=== PATIENT | female | born 1950 | race Caucasian/White ===

== ENCOUNTER → 2017-09-12 07:57 | Outpatient (CLI) | payer MEDICARE, OTHER, SELFPAY ==
--- NOTE | 2017-09-12 | DI.NM.S_ITS ---
PROCEDURE: NM HIDA WITH CCK PHARMACEUTICAL: 5.5 mCi Tc-99m mebrofenin IV; 1.1 mcg CCK IV. INDICATIONS: RIGHT UPPER QUADRANT PAIN TECHNIQUE: Following intravenous administration of Tc-99m mebrofenin, sequential anterior abdominal images were obtained. To evaluate the contractile response of the gallbladder in response to Cholecystokinin (CCK), sincalide (0.02 ?g/kg) was administered by slow intravenous infusion approximately 60 minutes after the administration of the radiopharmaceutical. Sequential imaging was continued for 30 minutes after the start of CCK infusion. Gallbladder ejection fraction was calculated. COMPARISON: None. FINDINGS: Biliary scan: There is normal tracer uptake and excretion by the liver. There is normal visualization of the intrahepatic ducts, common bile duct, and gallbladder. There is normal tracer transit into the duodenum. CCK stimulation: There is abnormal contractile response of the gallbladder to CCK infusion. The calculated gallbladder ejection fraction is 12%; normal values are above 35%. It has been shown that any patient abdominal pain after CCK administration is related to the rate of CCK injection, rather than to any underlying gallbladder disease (Clinical Nuclear Medicine 2012; 37: 63-70. Journal of Nuclear Medicine 2014; 55: 1-9). IMPRESSION: Abnormal low gallbladder ejection fraction. Finding could be secondary to chronic cholecystitis versus biliary dyskinesia. Dictated by: Sita Jacob MD, PhD on 09/12/2017 at 10:37 Approved by: Sita Jacob MD, PhD on 09/12/2017 at 10:39
== END ==
PROVIDERS: Family Provider Internal Medicine; PCP Internal Medicine; Visit Provider Internal Medicine
DX: R93.2 Abnormal findings on diagnostic imaging of liver and biliary tract (principal); R10.11 Right upper quadrant pain
CPT/HCPCS: 78227; A9537; J2805

== ENCOUNTER → 2017-10-16 10:59 | Outpatient (CLI) | payer MEDICARE, OTHER, SELFPAY ==
[2017-10-16 11:20] LABS: Add Manual Diff / Slide Review NO; Basophils Percent Auto 1.1 % (0-2); Eosinophils Percent Auto 2.7 % (2-4); Hematocrit 35.9 % (36-46); Hemoglobin 12.1 g/dL (12.0-16.0); Lymphocytes Percent Auto 22.3 % (25-40); Mean Corpuscular HGB Conc 33.8 % (30-36); Mean Corpuscular Volume 91.8 fL (80-100); Monocytes Percent Auto 7.8 % (3-14); Neutrophils Absolute Auto 3400 /uL (3000-5900); Neutrophils Percent Auto 66.1 % (50-75); Platelet Count 220 X10^3/uL (150-400); Red Blood Cell Count 3.91 X10^6/uL (4.0-5.2); Red Cell Distribution Width 12.7 % (11.6-14.8); White Blood Cell Count 5.2 X10^3/uL (4.5-11.0)
[2017-10-16 11:34] LABS: Alanine Aminotransferase 25 IU/L (9-52); Albumin 4.4 g/dL (3.5-5.0); Albumin Globulin Ratio 1.1 (1.0-2.8); Alkaline Phosphatase 52 U/L (38-126); Aspartate Aminotransferase 42 IU/L (14-36); BUN Creatinine Ratio 28.6 (6-22); Bilirubin Total 0.4 mg/dL (0.2-1.3); Blood Urea Nitrogen 20 mg/dL (7-17); Calcium 9.5 mg/dL (8.4-10.2); Carbon Dioxide 30 mmol/L (22-32); Chloride 104 mmol/L (98-107); Estimated Glomerular Filt Rate > 60.0 mL/min (>60); Globulin 3.9 g/dL (1.7-4.1); Glucose 90 mg/dL (80-110); HEMOLYSIS < 15 (0-50); Potassium 4.3 mmol/L (3.4-5.1); Sodium 142 mmol/L (137-145); Total Protein 8.3 g/dL (6.3-8.2)
[2017-10-17 15:38] LABS: Free Kappa Light Chain 112.3 mg/L (3.3-19.4); Free Kappa/ Lambda Ratio 17.46 (0.26-1.65); Free Lambda 6.4 mg/L (5.7-26.3)
[2017-10-19 23:13] LABS: Abnormal Protein Band 1 1.5 g/dL (NONE DETECTED); Albumin 4.2 g/dL (3.8-4.8); Alpha 1 Globulin 0.3 g/dL (0.2-0.3); Alpha 2 Globulin 0.7 g/dL (0.5-0.9); Beta 1 Globulin 0.3 g/dL (0.4-0.6); Gamma Globulin 1.7 g/dL (0.8-1.7); Protein, Total 7.4 g/dL (6.1-8.1)
== END ==
PROVIDERS: Family Provider Internal Medicine; PCP Internal Medicine; Visit Provider Nurse Practitioner Gerontology
DX: C90.00 Multiple myeloma not having achieved remission (principal)
CPT/HCPCS: 36415; 80053; 83883; 84155; 84165; 85025

== ENCOUNTER → 2017-11-04 08:31 | Outpatient (CLI) | payer MEDICARE, OTHER, SELFPAY ==
--- NOTE | 2017-11-04 08:34 | DI.RAD.S_ITS ---
PROCEDURE: XR BONE SURVEY INDICATIONS: METASTATIC BONE SURVEY. HX OF SMOLDERING MYELOMA. TECHNIQUE: Multiple views obtained of various bony structures as described below. COMPARISON: Outside Facility, RG, MRI PELVIS W/O CONTRAST, 04/01/2017, 12:40. Outside Facility, RG, MRI L-SPINE W/O CONTRAST, 04/01/2017, 12:14. Outside Facility, RG, MRI BONE MARROW STUDY, 01/07/2012, 12:50. FINDINGS: Skull (lateral): No suspicious bony lesions. No fractures. Thoracic spine (AP, lateral): No suspicious bony lesions. Degenerative disc disease. No acute vertebral body compression fractures. Lumbar spine (AP, lateral): No suspicious bony lesions. Degenerative disc disease. No acute vertebral body compression fractures. Pelvis (AP): No suspicious bony lesions. Spina bifida occulta S1. No fractures. Overlying soft tissues appear unremarkable. Right and left humeri (AP): No suspicious bony lesions. No fractures. Overlying soft tissues appear unremarkable. Right and left femurs (AP): No suspicious bony lesions. No fractures. Degenerative knee joint disease. Overlying soft tissues appear unremarkable. IMPRESSION: Negative bone survey for metastatic disease. Degenerative changes. Dictated by: Jose Stauffer M.D. on 11/04/2017 at 9:33 Approved by: Jose Stauffer M.D. on 11/04/2017 at 9:41
--- NOTE | 2017-11-04 08:34 | DI.NM.S_ITS ---
PROCEDURE: NM BONE SCAN WHOLE BODY RADIOPHARMACEUTICAL: 20.4 mCi Tc-99m MDP IV. INDICATIONS: The patient is a 67-year-old woman with multiple myelomas TECHNIQUE: Delayed whole-body scintigrams were obtained approximately 3-4 hours after intravenous injection of radiotracer. COMPARISON: Outside Facility, RG, MRI L-SPINE W/O CONTRAST, 04/01/2017, 12:14. [facility], CR, XR BONE SURVEY, 11/04/2017, 8:51. FINDINGS: There is mild increased activity at the sternal manubrial junction, most likely degenerative in nature. No lesions are identified in skull, sternum, clavicles, scapulae, ribs, bony pelvis, and visualized shafts of the long bones. There is increased uptake in cervical, thoracic and lumbar spine with distribution indistinguishable from degenerative disc and facet disease; early metastasis to spine could be obscured by degenerative changes. There are foci of increased periarticular activity involving shoulders bilaterally, sternoclavicular joints bilaterally, left elbow, wrists bilaterally, hips and knees bilaterally, and feet bilaterally, compatible with degenerative/arthritic changes. There is normal soft tissue uptake. IMPRESSION: 1. No definitive scintigraphic findings for multiple myelomas, but bone scan is known to underestimated lytic bone lesions such as multiple myelomas. Dictated by: Jimenez Child M.D. on 11/04/2017 at 16:56 Approved by: Jimenez Child M.D. on 11/05/2017 at 11:43
== END ==
PROVIDERS: Family Provider Internal Medicine; PCP Internal Medicine; Visit Provider Internal Medicine Hematology & Oncology
DX: C90.00 Multiple myeloma not having achieved remission (principal)
CPT/HCPCS: 77075; 78306; A9503

== ENCOUNTER 2018-03-08 20:02 | Emergency (ER) | payer MEDICARE, OTHER, SELFPAY ==
[2018-03-08 20:11] VITALS: BP 115/78; PULSE 87; RESP 16; TEMP 36.1; O2SAT 98; BMI 22.6
--- NOTE | 2018-03-08 20:18 | ED.ABDPAIN ---
HPI - Abdominal Pain General Chief Complaint: Abdominal Pain Stated Complaint: FLARE UP DIVERTICULITIS Time Seen by Provider: 03/08/18 20:18 Source: patient Mode of arrival: ambulatory Limitations: no limitations History of Present Illness HPI narrative: patient is a juliette 67-year-old female who presents with left lower quadrant pain. It has been ongoing for the last 2 days progressively getting worse. She has a history of diverticulitis she has this feels similar. She has not had any bloody stool she has had 1 episode of diarrhea. She has not had fever or chills. MD complaint: abdominal pain (Left lower quadrant) Onset (ago): day(s) (2) Pain Consistency: constant Location: LLQ Severity: moderate Quality: sharp Radiation: none Migration to: no migration Exacerbating factors: nothing Associated symptoms: denies other symptoms Related Data Home Medications Medication Instructions Recorded Confirmed esomeprazole magnesium [Nexium] 40 mg PO PRN #0 06/03/12 02/17/18 calcium citrate-vitamin D3 1 tab PO QDAY #0 08/14/16 02/17/18 [Citracal + D Petites] omega 7-fyq-rcy-fish oil [Fish Oil] 1,000 mg PO QDAY #0 08/14/16 02/17/18 gabapentin 300 mg PO DAILY 11/12/17 02/17/18 Previous Rx's Medication Instructions Recorded lorazepam 0.5 mg PO Q6-8H PRN #45 tab 12/26/17 metronidazole 500 mg PO TID #21 tab 03/08/18 sulfamethoxazole-trimethoprim 1 tab PO Q12H #14 tab 03/08/18 Allergies Allergy/AdvReac Type Severity Reaction Status Date / Time levofloxacin Allergy Severe TENDON PAIN Verified 02/06/18 14:52 Penicillins Allergy Unknown UNKNOWN Verified 02/06/18 14:52 Review of Systems Review of Systems GENERAL: Denies chills, fatigue, malaise, fever, sweats, travel HEENT: Denies sinus pain, ear pain, sore throat, difficulty swallowing, neck pain RESPIRATORY: Denies dyspnea, cough, wheezing, hemoptysis, sputum. CARDIOVASCULAR: Denies chest pain, palpitations, orthopnea, edema GASTROINTESTINAL: See HPI : Denies dysuria, frequency, incontinence, hematuria, urinary retention, flank pain. MUSCULOSKELETAL: Denies weakness, joint pain, or bony pain SKIN: No rash, no erythema, no pruritus NEUROLOGIC: Denies weakness, dizziness, headache, numbness, change in speech, confusion PSYCHIATRIC: No concerning psychosocial issues. 12 point review of systems is negative except for those stated above and HPI [facility] Medical History Diverticulitis (Acute) Hemorrhoids (Acute) Hypercalcemia (Acute) Osteopenia (Acute) Surgical History H/O tubal ligation (Acute) History of appendectomy (Acute) History of parathyroidectomy (Acute) Hx of tonsillectomy (Acute) Previous section (Acute) Social History marital status: household members: spouse housing: house Smoking Status: Never smoker alcohol intake: current Exam Initial Vital Signs Initial Vital Signs: Vital Signs Temperature 97.0 F L 03/08/18 20:11 Pulse Rate 87 03/08/18 20:11 Respiratory Rate 16 03/08/18 20:11 Blood Pressure 115/78 03/08/18 20:11 Pulse Oximetry 98 03/08/18 20:11 GENERAL: Well-appearing, well-nourished and in no acute distress. HEENT: Head atraumatic,EOMI, pupils reactive, face symmetric, CARDIOVASCULAR: Regular rate and rhythm without murmurs, rubs or gallops. RESPIRATORY: Breath sounds equal bilaterally, no wheezes rales or rhonchi. ABDOMEN: Soft, left lower quadrant pain without guarding or rebound no flank pain EXTREMITIES: Normal range of motion, no clubbing or edema. Neurovascularly intact NEUROLOGICAL: Alert and oriented x4.Normal gait and speech. Cranial nerves II through XII grossly intact. SKIN: Warm, dry, no laceration, no petechiae, no rashes or lesions. Course Orders Ordered: ED Orders 03/08/18 20:27 CT abdomen pelvis w con Stat 03/08/18 20:44 Complete Blood Count AUTO DIFF Stat Comprehensive Metabolic Panel Stat Lipase Stat Discontinued Medications Acetaminophen (Tylenol) 650 mg PO NOW ONE Stop: 03/08/18 20:28 Last Admin: 03/08/18 20:33 Dose: 650 mg Metronidazole (Metronidazole) 500 mg PO NOW ONE Stop: 03/08/18 22:04 Last Admin: 03/08/18 22:18 Dose: Trimethoprim/Sulfamethoxazole (Bactrim Ds Prepack) 1 bottle MISC SEEINSTR ONE Stop: 03/08/18 22:04 Last Admin: 03/08/18 22:18 Dose: Vital Signs - 8 hr 03/08/18 20:11 03/08/18 22:25 Temperature 97.0 F L Pulse Rate 87 78 Respiratory Rate 16 16 Blood Pressure 115/78 105/58 L Pulse Oximetry 98 100 MDM - Abdominal Pain Lab Data Attestation: I reviewed the patient's lab results. Result diagrams: 03/08/18 20:44 03/08/18 20:44 Lab Results 03/08/18 03/08/18 Range/Units 20:44 20:44 WBC 7.8 (4.5-11.0) X10^3/uL RBC 3.77 L (4.0-5.2) X10^6/uL Hgb 11.8 L (12.0-16.0) g/dL Hct 34.5 L (36-46) % MCV 91.6 (80-100) fL MCH 31.4 (26-34) PG MCHC 34.3 (30-36) % RDW 12.6 (11.6-14.8) % Plt Count 209 (150-400) X10^3/uL Neut % (Auto) 65.6 (50-75) % Lymph % (Auto) 22.7 L (25-40) % Wheeler % (Auto) 8.5 (3-14) % Eos % (Auto) 2.3 (2-4) % Baso % (Auto) 0.9 (0-2) % Neut # (Auto) 5100 (1330-4117) /uL Sodium 142 (137-145) mmol/L Potassium 3.5 (3.4-5.1) mmol/L Chloride 102 (98-107) mmol/L Carbon Dioxide 32 (22-32) mmol/L BUN 13 (7-17) mg/dL Creatinine 0.70 (0.52-1.04) mg/dL Estimated GFR > 60.0 (>60) mL/min BUN/Creatinine Ratio 18.6 (6-22) Glucose 108 (80-110) mg/dL Calcium 9.7 (8.4-10.2) mg/dL Total Bilirubin 0.2 (0.2-1.3) mg/dL AST 35 (14-36) IU/L ALT 29 (9-52) IU/L Alkaline Phosphatase 66 (38-126) U/L Total Protein 8.2 (6.3-8.2) g/dL Albumin 4.3 (3.5-5.0) g/dL Globulin 3.9 (1.7-4.1) g/dL Albumin/Globulin Ratio 1.1 (1.0-2.8) Lipase 124 (23-300) U/L Point of care testing: Urine Dip Bedside Urine Bilirubin - Negative Bedside Urine Ketone - Negative Urine Specific Lindstrom 1.030 Bedside Urine Occult Blood - Negative Bedside Urine pH 6.0 Bedside Urine Protein - Negative Bedside Urine Urobilinogen - Negative Bedside Urine Nitrite - Negative Bedside Urine Leukocytes - Negative Esterase Imaging Data CT scan - abdomen: Radiologist's impression: PROCEDURE: CT ABDOMEN PELVIS W CON INDICATIONS: LLQ pain TECHNIQUE: After the administration of intravenous contrast, 5 mm thick sections acquired from the diaphragm to the symphysis. 5 mm coronal and sagittal reformats were acquired. For radiation dose reduction, the following was used: automated exposure control, adjustment of mA and/or kV according to patient size. COMPARISON: [facility], , [place] ABDOMEN COMPLETE, 09/04/2017, 7:25. FINDINGS: Image quality: Excellent. ABDOMEN: Lung bases: Lung bases are clear. Heart size is normal. Solid organs: Liver is enlarged with mild steatosis. Gallbladder is unremarkable. Biliary system is non dilated. Pancreas enhances normally. Spleen is normal in size and enhancement. No adrenal nodules. Kidneys demonstrate normal size and enhancement, without hydronephrosis. Peritoneum and bowel: Bowel loops are nonobstructive. No free fluid or air. Significant colonic stool is present. There are colonic diverticula identified. There is a focal loop of thickened distal descending colon with diverticula and pericolonic stranding. Sigmoid colon is collapsed limiting evaluation. Minimal dependent pelvic fluid is present. No abscess. Nodes and vessels: No retroperitoneal or mesenteric adenopathy by size criteria. Aorta and inferior vena cava are normal in size. Miscellaneous: No ventral hernias. PELVIS: Genitourinary: Bladder wall thickness is normal. Miscellaneous: No inguinal hernias or adenopathy. Bones: No suspicious bony lesions. No vertebral body compression fractures. IMPRESSION: 1. Focal thickened loop of distal descending colon with diverticula and pericolonic inflammatory change no suggestion of diverticulitis. No abscess formation is present. Sigmoid colon is suboptimally evaluated as it is poorly distended. Dictated by: Nadine Cristobal M.D. on 03/08/2018 at 21:39 MDM Narrative Medical decision making narrative: Patient does not have definitive diverticulitis on CT but she does have some inflammatory changes. Mild leukocytosis in afebrile. She has significant allergies to penicillin and fluoroquinolones. I discussed conservative treatment of no antibiotics and waiting for the next couple of days versus starting antibiotics now. At this time she is agreeable to wait a few days however have prescribed her Bactrim and Flagyl if she continues to have pain. Discharge Plan Departure Patient Disposition: Home Clinical Impression: Colitis Discharge Date/Time: 03/08/18 22:26 Interventions: ED Discharge Assessment Last Done: 03/08/18 22:25 Instructions: Diverticulitis, DI for Colitis Activity Restrictions/Additional Instructions: *You have been diagnosed with colitis *What to do: CT showed inflammation no specific diverticulitis blood work reassuring weight 2-3 days symptoms may resolve without antibiotics. If symptoms continue or worsen may start antibiotics as prescribed *Continue to take medications as directed: faxed to [facility] in [place] Flagyl 1 tablet 3 times a day for 7 days Bactrim 1 tablet twice a day for 7 days *Follow up with your primary care provider in 2-3 days *Return to ER if you should have fever, worsening pain, bloody diarrhea any new, worsening or concerning symptoms Prescriptions: New sulfamethoxazole-trimethoprim 800-160 mg tablet 1 tab PO Q12H Qty: 14 RF: 0 metronidazole 500 mg tablet 500 mg PO TID Qty: 21 RF: 0 No Action esomeprazole magnesium [Nexium] 40 MG capsule,delayed release(DR/EC) 40 mg PO PRN Qty: 0 RF: 0 omega 6-wxp-afy-fish oil [Fish Oil] 1,000 MG capsule 1,000 mg PO QDAY Qty: 0 RF: 0 calcium citrate-vitamin D3 [Citracal + D Petites] 950 MG/250 IU tablet 1 tab PO QDAY Qty: 0 RF: 0 gabapentin 300 mg Capsule 300 mg PO DAILY RF: 0 lorazepam 0.5 mg Tablet 0.5 mg PO Q6-8H PRN (Reason: Anxiety) Qty: 45 RF: 0
--- NOTE | 2018-03-08 20:27 | DI.CT.S_ITS ---
PROCEDURE: CT ABDOMEN PELVIS W CON INDICATIONS: LLQ pain TECHNIQUE: After the administration of intravenous contrast, 5 mm thick sections acquired from the diaphragm to the symphysis. 5 mm coronal and sagittal reformats were acquired. For radiation dose reduction, the following was used: automated exposure control, adjustment of mA and/or kV according to patient size. COMPARISON: , , US ABDOMEN COMPLETE, 09/04/2017, 7:25. FINDINGS: Image quality: Excellent. ABDOMEN: Lung bases: Lung bases are clear. Heart size is normal. Solid organs: Liver is enlarged with mild steatosis. Gallbladder is unremarkable. Biliary system is non dilated. Pancreas enhances normally. Spleen is normal in size and enhancement. No adrenal nodules. Kidneys demonstrate normal size and enhancement, without hydronephrosis. Peritoneum and bowel: Bowel loops are nonobstructive. No free fluid or air. Significant colonic stool is present. There are colonic diverticula identified. There is a focal loop of thickened distal descending colon with diverticula and pericolonic stranding. Sigmoid colon is collapsed limiting evaluation. Minimal dependent pelvic fluid is present. No abscess. Nodes and vessels: No retroperitoneal or mesenteric adenopathy by size criteria. Aorta and inferior vena cava are normal in size. Miscellaneous: No ventral hernias. PELVIS: Genitourinary: Bladder wall thickness is normal. Miscellaneous: No inguinal hernias or adenopathy. Bones: No suspicious bony lesions. No vertebral body compression fractures. IMPRESSION: 1. Focal thickened loop of distal descending colon with diverticula and pericolonic inflammatory change no suggestion of diverticulitis. No abscess formation is present. Sigmoid colon is suboptimally evaluated as it is poorly distended. Dictated by: Nadine Cristobal M.D. on 03/08/2018 at 21:39 Approved by: Nadine Cristobal M.D. on 03/08/2018 at 21:41
[2018-03-08] MEDS: ACETAMINOPHEN 325 MG TABLET 650 MG PO (20:33)
[2018-03-08 20:47] LABS: Add Manual Diff / Slide Review NO; Basophils Percent Auto 0.9 % (0-2); Eosinophils Percent Auto 2.3 % (2-4); Hematocrit 34.5 % (36-46); Hemoglobin 11.8 g/dL (12.0-16.0); Lymphocytes Percent Auto 22.7 % (25-40); Mean Corpuscular HGB Conc 34.3 % (30-36); Mean Corpuscular Hemoglobin 31.4 PG (26-34); Mean Corpuscular Volume 91.6 fL (80-100); Monocytes Percent Auto 8.5 % (3-14); Neutrophils Absolute Auto 5100 /uL (3000-5900); Neutrophils Percent Auto 65.6 % (50-75); Platelet Count 209 X10^3/uL (150-400); Red Blood Cell Count 3.77 X10^6/uL (4.0-5.2); Red Cell Distribution Width 12.6 % (11.6-14.8); White Blood Cell Count 7.8 X10^3/uL (4.5-11.0)
[2018-03-08 20:59] LABS: Alanine Aminotransferase 29 IU/L (9-52); Albumin 4.3 g/dL (3.5-5.0); Albumin Globulin Ratio 1.1 (1.0-2.8); Alkaline Phosphatase 66 U/L (38-126); Aspartate Aminotransferase 35 IU/L (14-36); BUN Creatinine Ratio 18.6 (6-22); Bilirubin Total 0.2 mg/dL (0.2-1.3); Blood Urea Nitrogen 13 mg/dL (7-17); Calcium 9.7 mg/dL (8.4-10.2); Carbon Dioxide 32 mmol/L (22-32); Chloride 102 mmol/L (98-107); Estimated Glomerular Filt Rate > 60.0 mL/min (>60); Globulin 3.9 g/dL (1.7-4.1); Glucose 108 mg/dL (80-110); HEMOLYSIS < 15 (0-50); Lipase 124 U/L (23-300); Potassium 3.5 mmol/L (3.4-5.1); Sodium 142 mmol/L (137-145); Total Protein 8.2 g/dL (6.3-8.2)
[2018-03-08 22:25] VITALS: BP 105/58; PULSE 78; RESP 16; O2SAT 100
== END 2018-03-08 22:26 | disposition home or self-care (01) ==
PROVIDERS: Emergency Provider Emergency Medicine
DX: K52.9 Noninfective gastroenteritis and colitis, unspecified (principal)
CPT/HCPCS: 36591; 74177; 80053; 81003; 83690; 85025; 99282; 99285; Q9967

== ENCOUNTER → 2018-03-17 14:48 | Outpatient (CLI) | payer MEDICARE, OTHER, SELFPAY ==
[2018-03-17 15:21] LABS: Add Manual Diff / Slide Review NO; Basophils Percent Auto 0.9 % (0-2); Eosinophils Percent Auto 2.6 % (2-4); Hematocrit 36.1 % (36-46); Hemoglobin 12.1 g/dL (12.0-16.0); Lymphocytes Percent Auto 29.2 % (25-40); Mean Corpuscular HGB Conc 33.7 % (30-36); Mean Corpuscular Hemoglobin 30.8 PG (26-34); Mean Corpuscular Volume 91.4 fL (80-100); Monocytes Percent Auto 7.5 % (3-14); Neutrophils Absolute Auto 3300 /uL (3000-5900); Neutrophils Percent Auto 59.8 % (50-75); Platelet Count 290 X10^3/uL (150-400); Red Blood Cell Count 3.94 X10^6/uL (4.0-5.2); Red Cell Distribution Width 12.4 % (11.6-14.8); White Blood Cell Count 5.6 X10^3/uL (4.5-11.0)
[2018-03-17 16:23] LABS: Alanine Aminotransferase 25 IU/L (9-52); Albumin 4.6 g/dL (3.5-5.0); Albumin Globulin Ratio 1.1 (1.0-2.8); Alkaline Phosphatase 82 U/L (38-126); Aspartate Aminotransferase 32 IU/L (14-36); BUN Creatinine Ratio 18.6 (6-22); Bilirubin Total 0.3 mg/dL (0.2-1.3); Blood Urea Nitrogen 13 mg/dL (7-17); Calcium 9.4 mg/dL (8.4-10.2); Carbon Dioxide 30 mmol/L (22-32); Chloride 102 mmol/L (98-107); Estimated Glomerular Filt Rate > 60.0 mL/min (>60); Globulin 4.2 g/dL (1.7-4.1); Glucose 114 mg/dL (80-110); HEMOLYSIS < 15 (0-50); Potassium 3.5 mmol/L (3.4-5.1); Sodium 139 mmol/L (137-145); Total Protein 8.8 g/dL (6.3-8.2)
[2018-03-19 13:41] LABS: Immunoglobulin A 15 mg/dL (81-463); Immunoglobulin G, Quantitative 2002 mg/dL (694-1618); Immunoglobulin M, Quantitative 8 mg/dL (48-271)
[2018-03-19 15:54] LABS: Free Kappa Light Chain 114.8 mg/L (3.3-19.4); Free Kappa/ Lambda Ratio 19.19 (0.26-1.65)
[2018-03-21 10:56] LABS: Abnormal Protein Band 1 1.5 g/dL (NONE DETECTED); Albumin 4.3 g/dL (3.8-4.8); Alpha 1 Globulin 0.3 g/dL (0.2-0.3); Alpha 2 Globulin 0.7 g/dL (0.5-0.9); Beta 1 Globulin 0.3 g/dL (0.4-0.6); Gamma Globulin 1.8 g/dL (0.8-1.7); Protein, Total 7.7 g/dL (6.1-8.1)
== END ==
PROVIDERS: Family Provider Internal Medicine; PCP Internal Medicine; Visit Provider Internal Medicine
DX: C90.00 Multiple myeloma not having achieved remission (principal)
CPT/HCPCS: 36415; 80053; 82784; 83883; 84155; 84165; 85025

== ENCOUNTER → 2018-05-01 14:55 | Outpatient (CLI) | payer MEDICARE, OTHER, SELFPAY | PROVIDERS: Family Provider Internal Medicine; PCP Internal Medicine; Referring Provider Internal Medicine; Visit Provider Internal Medicine Hematology & Oncology | DX: M85.852 Other specified disorders of bone density and structure, left thigh (principal); Z78.0 Asymptomatic menopausal state; C90.00 Multiple myeloma not having achieved remission; Z82.62 Family history of osteoporosis; Z87.891 Personal history of nicotine dependence | CPT/HCPCS: 77080 ==

== ENCOUNTER 2018-05-21 09:47 | Day surgery (SDC) | payer MEDICARE, OTHER, SELFPAY ==
[2018-05-21 09:53] VITALS: BP 109/73; PULSE 94; RESP 16; TEMP 36.3; O2SAT 99; BMI 22.6
[2018-05-21] MEDS: ONDANSETRON 4 MG/2 ML INJ IV (10:05)
[2018-05-21] MEDS: LACTATED RINGERS 1,000 ML 42 ML IV (10:08)
[2018-05-21 11:08] VITALS: BP 99/65; PULSE 91; RESP 13; TEMP 36.7; O2SAT 97
--- NOTE | 2018-05-21 11:09 | PM.HP.1 ---
History of Present Illness Date Patient Seen: 05/21/18 Time Patient Seen: 11:09 Chief complaint: colonoscopy hemrroid banding [id number] Narrative: Ashley is a pleasant 68-year-old lady who is well known to me from prior visits. She presents today to undergo a colonoscopy and hemorrhoid banding. Her last colonoscopy was at least 10 or 11 years ago. She has known internal hemorrhoids and we discussed banding before in the past. She also suffers from a smoldering case of multiple myeloma and she has just seen doctor José Miguel and reports that she is doing well. Patient History Medical History Diverticulitis (Acute) Hemorrhoids (Acute) Hypercalcemia (Acute) Osteopenia (Acute) Surgical History H/O tubal ligation (Acute) History of appendectomy (Acute) History of parathyroidectomy (Acute) Hx of tonsillectomy (Acute) Previous section (Acute) Family & Social History Family History: Reviewed 05/21/18 by Yajaira Louis MD Social History: household members spouse Tobacco & Substance use: Smoking Status Never smoker alcohol intake current alcohol intake frequency a few times a week Substance Use Type does not use Meds Home Medications Medication Instructions Recorded Confirmed Type esomeprazole magnesium [Nexium] 40 mg PO PRN #0 06/03/12 05/05/18 History calcium citrate-vitamin D3 1 tab PO QDAY #0 08/14/16 05/05/18 History [Citracal + D Petites] omega 6-crr-gsr-fish oil [Fish Oil] 1,000 mg PO QDAY #0 08/14/16 05/05/18 History gabapentin 300 mg PO DAILY 11/12/17 05/05/18 History lorazepam 0.5 mg PO Q6-8H PRN #45 tab 12/26/17 05/05/18 Rx metronidazole 500 mg PO TID PRN 05/05/18 05/05/18 History sulfamethoxazole-trimethoprim 1 tab PO Q12H PRN 05/05/18 05/05/18 History Allergies Allergy/AdvReac Type Severity Reaction Status Date / Time levofloxacin Allergy Severe TENDON PAIN Verified 04/14/18 10:04 Penicillins Allergy Unknown UNKNOWN Verified 04/14/18 10:04 codeine AdvReac Mild Nausea Verified 04/14/18 10:04 Review of Systems Review of Systems All systems reviewed & are unremarkable except as noted in HPI and below Exam Vital Signs (past 8 hours): - 05/21/18 09:53 Temperature 97.4 F L Pulse Rate 94 H Respiratory Rate 16 Blood Pressure 109/73 Pulse Oximetry 99 Oxygen Delivery Method Room Air Narrative Exam Narrative: Very pleasant thin lady in no obvious distress HEENT: Normocephalic and atraumatic, pupils equal round reactive to light accommodation with anicteric sclera Lungs: Clear bilaterally Heart: Regular rate and rhythm Abdomen: Soft, nontender, active bowel sounds Rectal examination: 2 areas of prolapsing internal hemorrhoids at 5:00 a.m. and 9:00 a.m. respectively. No enlarged external hemorrhoids are appreciated. She has 1 residual skin tag at 6:00 a.m.. No erythema or surrounding reaction. Extremities: Warm and well perfused Assessment & Plan Plan: Assessment/Plan Narrative: Pleasant 68-year-old lady here for colonoscopy and hemorrhoid banding. We discussed the risks and benefits of the procedure once again the patient expressed a desire to complete it today.
[2018-05-21 11:12] VITALS: BP 104/65; PULSE 80; RESP 9; O2SAT 93
--- NOTE | 2018-05-21 11:17 | P.OP_ITS ---
Operative Date/Time/Diagnoses Date of procedure: 05/21/18 Time of procedure: 11:13 Pre-op diagnosis: Screening Grade 2-3 internal hemorrhoids Post-op diagnosis: same Procedure & Clinicians Procedure: Colonoscopy and hemorrhoid banding x3 Same procedure as scheduled: Yes Indications: Last colonoscopy more than 10 years ago Surgeon: Yajaira Louis Click Yes if Unassisted: Yes Anesthesia Type: General Operative Notes Findings: 1. Excellent prep 2. No polyps or mass lesions 3. No AV malformations 4. Short segment diverticulosis between 20 and 30 cm from the anal verge. She has scattered large deep pockets in this region only with sparing of the remainder of the colon. No evidence of inflammation 5. Grade 2-3 internal hemorrhoids with bands placed at 5:00 a.m. and 8 and 9: 00 a.m. respectively Closure Type: not applicable Implants & Drains: Three sets of hemorrhoid bands Procedure in detail: After obtaining informed consent, the patient was brought to the GI suite and placed in the left lateral decubitus position on the examination table. After placement of appropriate monitors, a time out was held per SCOAP protocol. Following this, the patient received successful induction of general anesthesia A digital rectal examination was performed and did not reveal any masses or obstructing lesions. The colonoscope was gently passed into the patient's anus and the entire colon navigated to the level of the cecum with minimal difficulty. Once in the cecum, the scope was withdrawn being sure to go before and beyond all mucosal folds and prominences and get an excellent examination. The findings are noted above. At the level of the rectal vault, the scope was retroflexed and the internal anal canal was examined. The scope was straightened and air aspirated from the colon. The instrument was removed from the patient's body and the procedure was concluded. We continued with hemorrhoid banding. The anal retractor was lubricated and placed in the patient's anal canal. An Allis clamp was placed on the hemorrhoid complex at 5:00 a.m. and 2 bands deployed at the base of this complex. There was a notable difference in the appearance of the anal canal externally. The same procedure was repeated at 8 and 9:00 a.m. respectively. This hemorrhoid complex was divided into 2 segments because of its large size. Again, there was noticeable improvement in the external appearance of these hemorrhoids. The retractor was removed and the procedure was concluded. The patient was allowed to awaken from sedation without difficulty and taken to the post-anesthesia care unit in good condition. Complications: none Condition: stable Disposition: PACU Plan for aftercare: 1. Discharge to home 2. Plan for next colonoscopy in 10 years or as clinically indicated and 3. Follow up with my clinic in 2 weeks
[2018-05-21 11:18] VITALS: BP 115/75; PULSE 81; RESP 16; O2SAT 95
--- NOTE | 2018-05-21 11:32 | SUR.PHASEII ---
Pt c/o rectal pressure, requested to get up to the bathroom. Pt ambulated to the bathroom, sba. Denied passing flatus or bm.
[2018-05-21 11:36] VITALS: BP 113/71; PULSE 77; RESP 15; TEMP 36.3; O2SAT 97
== END 2018-05-21 11:58 | disposition home or self-care (01) ==
PROVIDERS: Family Provider Internal Medicine; PCP Internal Medicine; Visit Provider Surgery
PROC: 0DJD8ZZ Inspection of Lower Intestinal Tract, Via Natural or Artificial Opening Endoscopic (ICD-10-PCS; CPT 45378; principal; 2018-05-21 11:15)
DX: Z12.11 Encounter for screening for malignant neoplasm of colon (principal); K57.30 Diverticulosis of large intestine without perforation or abscess without bleeding; K64.2 Third degree hemorrhoids
CPT/HCPCS: 46221; G0121; J2405; J2704; J3010

== ENCOUNTER → 2018-09-11 13:44 | Outpatient (CLI) | payer MEDICARE, OTHER, SELFPAY ==
[2018-09-11 14:23] LABS: Add Manual Diff / Slide Review NO; Basophils Absolute Auto 0 /uL (0-100); Basophils Percent Auto 0.6 % (0-2); Eosinophils Absolute Auto 100 /uL (0-450); Eosinophils Percent Auto 1.5 % (2-4); Hematocrit 34.9 % (36-46); Hemoglobin 11.9 g/dL (12.0-16.0); Lymphocytes Absolute Auto 1400 /uL (1100-4500); Lymphocytes Percent Auto 23.7 % (25-40); Mean Corpuscular HGB Conc 34.2 % (30-36); Mean Corpuscular Hemoglobin 31.5 PG (26-34); Mean Corpuscular Volume 92.1 fL (80-100); Monocytes Absolute Auto 400 /uL (0-900); Monocytes Percent Auto 6.6 % (3-14); Neutrophils Absolute Auto 3900 /uL (1500-7000); Neutrophils Percent Auto 67.6 % (50-75); Platelet Count 240 X10^3/uL (150-400); Red Blood Cell Count 3.79 X10^6/uL (4.0-5.2); Red Cell Distribution Width 13.5 % (11.6-14.8); White Blood Cell Count 5.7 X10^3/uL (4.5-11.0)
[2018-09-11 14:55] LABS: Alanine Aminotransferase 39 IU/L (9-52); Albumin 4.6 g/dL (3.5-5.0); Albumin Globulin Ratio 1.1 (1.0-2.8); Alkaline Phosphatase 73 U/L (38-126); Aspartate Aminotransferase 43 IU/L (14-36); BUN Creatinine Ratio 22.5 (6-22); Bilirubin Total 0.4 mg/dL (0.2-1.3); Blood Urea Nitrogen 18 mg/dL (7-17); Calcium 9.6 mg/dL (8.4-10.2); Carbon Dioxide 29 mmol/L (22-32); Chloride 101 mmol/L (98-107); Estimated Glomerular Filt Rate > 60.0 mL/min (>60); Globulin 4.1 g/dL (1.7-4.1); Glucose 106 mg/dL (80-110); HEMOLYSIS < 15 (0-50); Potassium 3.7 mmol/L (3.4-5.1); Sodium 138 mmol/L (137-145); Total Protein 8.7 g/dL (6.3-8.2)
[2018-09-13 10:56] LABS: Free Kappa Light Chain 133.2 mg/L (3.3-19.4); Free Kappa/ Lambda Ratio 17.36 (0.26-1.65); Free Lambda 7.7 mg/L (5.7-26.3)
[2018-09-13 14:12] LABS: Immunoglobulin A 17 mg/dL (81-463); Immunoglobulin G, Quantitative 2048 mg/dL (694-1618); Immunoglobulin M, Quantitative 7 mg/dL (48-271)
[2018-09-15 16:46] LABS: Abnormal Protein Band 1 1.5 g/dL (NONE DETECTED); Albumin 4.3 g/dL (3.8-4.8); Alpha 1 Globulin 0.3 g/dL (0.2-0.3); Alpha 2 Globulin 0.7 g/dL (0.5-0.9); Beta 1 Globulin 0.4 g/dL (0.4-0.6); Gamma Globulin 1.7 g/dL (0.8-1.7); Protein, Total 7.6 g/dL (6.1-8.1)
== END ==
PROVIDERS: PCP Internal Medicine; Visit Provider Internal Medicine
DX: C90.00 Multiple myeloma not having achieved remission (principal)
CPT/HCPCS: 36415; 80053; 82784; 83883; 84155; 84165; 85025

== ENCOUNTER → 2018-10-04 08:52 | Outpatient (CLI) | payer MEDICARE, OTHER, SELFPAY ==
--- NOTE | 2018-10-04 | DI.MG.S_ITS ---
BILATERAL DIGITAL SCREENING MAMMOGRAM 3D/2D WITH CAD: 10/04/2018 CLINICAL: Routine screening. Family history of breast cancer. Comparison is made to exams dated: 09/03/2017 mammogram, 05/15/2016 mammogram, and 04/28/2015 mammogram - [facility]. The tissue of both breasts is heterogeneously dense. This may lower the sensitivity of mammography. Current study was also evaluated with a Computer Aided Detection (CAD) system. No significant masses, calcifications, or other findings are seen in either breast. There has been no significant interval change. IMPRESSION: NEGATIVE There is no mammographic evidence of malignancy. A 1 year screening mammogram is recommended. This exam was interpreted at Station ID: [id number]. NOTE: For mammograms, a report in lay terms will be sent to the patient. Approximately 15% of breast malignancies will not be visualized mammographically. In the management of a palpable breast mass, a negative mammogram must not discourage biopsy of a clinically suspicious lesion. Electronically Signed By: Sergio avila/ashwin:10/06/2018 11:37:12 copy to: ALKA JUAREZ letter sent: Normal Exam ACR BI-RADS Category 1: Negative [id number]
== END ==
PROVIDERS: PCP Internal Medicine; Visit Provider Internal Medicine
DX: Z12.31 Encounter for screening mammogram for malignant neoplasm of breast (principal); Z80.3 Family history of malignant neoplasm of breast
CPT/HCPCS: 77063; 77067

== ENCOUNTER → 2018-10-07 14:58 | Outpatient (CLI) | payer MEDICARE, OTHER, SELFPAY ==
--- NOTE | 2018-10-07 | DI.RAD.S_ITS ---
PROCEDURE: XR BONE SURVEY INDICATIONS: BONE SURVEY TECHNIQUE: Multiple views obtained of various bony structures as described below. COMPARISON: [facility], , XR BONE SURVEY, 11/04/2017, 8:51. FINDINGS: Skull (lateral): No suspicious bony lesions. No fractures. Thoracic spine (AP, lateral): No suspicious bony lesions. No acute vertebral body compression fractures. Lumbar spine (AP, lateral): No suspicious bony lesions. No acute vertebral body compression fractures. Moderate degenerative disc and facet disease lumbar spine. Pelvis (AP): No suspicious bony lesions. No fractures. Overlying soft tissues appear unremarkable. Right and left humeri (AP): No suspicious bony lesions. No fractures. Overlying soft tissues appear unremarkable. Right and left femurs (AP): No suspicious bony lesions. No fractures. Overlying soft tissues appear unremarkable. IMPRESSION: 1. No bony lesions identified to suggest multiple myelomas. 2. Moderate degenerative disc and facet disease in lumbar spine. Dictated by: Jimenez Child M.D. on 10/07/2018 at 16:56 Approved by: Jimenez Child M.D. on 10/07/2018 at 16:58
== END ==
PROVIDERS: PCP Internal Medicine; Visit Provider Internal Medicine
DX: Z13.828 Encounter for screening for other musculoskeletal disorder (principal); M51.36 Other intervertebral disc degeneration, lumbar region; C90.00 Multiple myeloma not having achieved remission
CPT/HCPCS: 77075

== ENCOUNTER → 2018-10-10 15:29 | Outpatient (CLI) | payer MEDICARE, OTHER, SELFPAY ==
[2018-10-10 16:15] LABS: Add Manual Diff / Slide Review NO; Basophils Absolute Auto 0 /uL (0-100); Basophils Percent Auto 0.7 % (0-2); Eosinophils Absolute Auto 100 /uL (0-450); Eosinophils Percent Auto 1.6 % (2-4); Hematocrit 35.5 % (36-46); Hemoglobin 12.3 g/dL (12.0-16.0); Lymphocytes Absolute Auto 1500 /uL (1100-4500); Lymphocytes Percent Auto 24.6 % (25-40); Mean Corpuscular HGB Conc 34.5 % (30-36); Mean Corpuscular Hemoglobin 31.5 PG (26-34); Mean Corpuscular Volume 91.3 fL (80-100); Monocytes Absolute Auto 500 /uL (0-900); Monocytes Percent Auto 7.8 % (3-14); Neutrophils Absolute Auto 3900 /uL (1500-7000); Neutrophils Percent Auto 65.3 % (50-75); Platelet Count 224 X10^3/uL (150-400); Red Blood Cell Count 3.89 X10^6/uL (4.0-5.2); White Blood Cell Count 5.9 X10^3/uL (4.5-11.0)
[2018-10-10 16:40] LABS: Alanine Aminotransferase 25 IU/L (9-52); Albumin 4.4 g/dL (3.5-5.0); Albumin Globulin Ratio 1.2 (1.0-2.8); Alkaline Phosphatase 79 U/L (38-126); Aspartate Aminotransferase 29 IU/L (14-36); BUN Creatinine Ratio 23.8 (6-22); Bilirubin Total 0.4 mg/dL (0.2-1.3); Blood Urea Nitrogen 19 mg/dL (7-17); Calcium 10.2 mg/dL (8.4-10.2); Carbon Dioxide 30 mmol/L (22-32); Chloride 100 mmol/L (98-107); Estimated Glomerular Filt Rate > 60.0 mL/min (>60); Globulin 3.7 g/dL (1.7-4.1); Glucose 94 mg/dL (80-110); HEMOLYSIS < 15 (0-50); Potassium 4.1 mmol/L (3.4-5.1); Sodium 137 mmol/L (137-145); Total Protein 8.1 g/dL (6.3-8.2)
[2018-10-14 15:38] LABS: Free Kappa Light Chain 144.5 mg/L (3.3-19.4); Free Kappa/ Lambda Ratio 23.35 (0.26-1.65); Free Lambda 6.2 mg/L (5.7-26.3)
[2018-10-15 11:20] LABS: Abnormal Protein Band 1 1.4 g/dL (NONE DETECTED); Albumin 4.3 g/dL (3.8-4.8); Alpha 1 Globulin 0.3 g/dL (0.2-0.3); Alpha 2 Globulin 0.7 g/dL (0.5-0.9); Beta 1 Globulin 0.3 g/dL (0.4-0.6); Gamma Globulin 1.7 g/dL (0.8-1.7); Protein, Total 7.5 g/dL (6.1-8.1)
== END ==
PROVIDERS: Family Provider Internal Medicine; PCP Internal Medicine; Visit Provider Internal Medicine
DX: C90.00 Multiple myeloma not having achieved remission (principal)
CPT/HCPCS: 36415; 80053; 82784; 83883; 84155; 84165; 85025

== ENCOUNTER → 2018-11-11 15:30 | Outpatient (CLI) | payer MEDICARE, OTHER, SELFPAY ==
[2018-11-11 16:01] LABS: Add Manual Diff / Slide Review NO; Basophils Absolute Auto 100 /uL (0-100); Basophils Percent Auto 1.2 % (0-2); Eosinophils Absolute Auto 100 /uL (0-450); Eosinophils Percent Auto 2.4 % (2-4); Hematocrit 34.3 % (36-46); Hemoglobin 11.9 g/dL (12.0-16.0); Lymphocytes Absolute Auto 1500 /uL (1100-4500); Lymphocytes Percent Auto 30.2 % (25-40); Mean Corpuscular HGB Conc 34.6 % (30-36); Mean Corpuscular Hemoglobin 31.8 PG (26-34); Mean Corpuscular Volume 91.8 fL (80-100); Monocytes Absolute Auto 400 /uL (0-900); Monocytes Percent Auto 7.3 % (3-14); Neutrophils Absolute Auto 3000 /uL (1500-7000); Neutrophils Percent Auto 58.9 % (50-75); Platelet Count 250 X10^3/uL (150-400); Red Blood Cell Count 3.74 X10^6/uL (4.0-5.2); Red Cell Distribution Width 12.6 % (11.6-14.8)
[2018-11-11 16:29] LABS: Alanine Aminotransferase 16 IU/L (9-52); Albumin 4.2 g/dL (3.5-5.0); Albumin Globulin Ratio 1.2 (1.0-2.8); Alkaline Phosphatase 84 U/L (38-126); Aspartate Aminotransferase 26 IU/L (14-36); BUN Creatinine Ratio 27.1 (6-22); Bilirubin Total 0.4 mg/dL (0.2-1.3); Blood Urea Nitrogen 19 mg/dL (7-17); Calcium 9.9 mg/dL (8.4-10.2); Carbon Dioxide 29 mmol/L (22-32); Chloride 104 mmol/L (98-107); Estimated Glomerular Filt Rate > 60.0 mL/min (>60); Globulin 3.6 g/dL (1.7-4.1); Glucose 88 mg/dL (80-110); HEMOLYSIS < 15 (0-50); Lactate Dehydrogenase 370 U/L (313-618); Potassium 4.1 mmol/L (3.4-5.1); Sodium 140 mmol/L (137-145); Total Protein 7.8 g/dL (6.3-8.2)
[2018-11-13 14:58] LABS: Immunoglobulin M, Quantitative 5 mg/dL (50-300)
[2018-11-13 15:05] LABS: Free Kappa Light Chain 136.2 mg/L (3.3-19.4); Free Kappa/ Lambda Ratio 21.38 (0.26-1.65); Free Lambda 6.4 mg/L (5.7-26.3); Immunoglobulin A 15 mg/dL (20-320); Immunoglobulin G, Quantitative 1944 mg/dL (600-1540)
[2018-11-13 15:57] LABS: Beta-2-Microglobulin 1.83 mg/L (< 2.52)
[2018-11-14 15:04] LABS: Abnormal Protein Band 1 1.5 g/dL (NONE DETECTED); Albumin 4.3 g/dL (3.8-4.8); Alpha 1 Globulin 0.3 g/dL (0.2-0.3); Alpha 2 Globulin 0.8 g/dL (0.5-0.9); Beta 1 Globulin 0.4 g/dL (0.4-0.6); Gamma Globulin 1.6 g/dL (0.8-1.7); Protein, Total 7.6 g/dL (6.1-8.1)
== END ==
PROVIDERS: Family Provider Internal Medicine; PCP Internal Medicine; Visit Provider Internal Medicine Hematology & Oncology
DX: C90.00 Multiple myeloma not having achieved remission (principal)
CPT/HCPCS: 36415; 80053; 82232; 82784; 83615; 83883; 84155; 84165; 85025

== ENCOUNTER → 2019-04-03 09:23 | Outpatient (CLI) | payer MEDICARE, OTHER, SELFPAY ==
[2019-04-03 09:59] LABS: Add Manual Diff / Slide Review NO; Basophils Absolute Auto 0 /uL (0-100); Basophils Percent Auto 1.4 % (0-2); Eosinophils Absolute Auto 100 /uL (0-450); Eosinophils Percent Auto 2.7 % (2-4); Hematocrit 36.7 % (36-46); Hemoglobin 12.5 g/dL (12.0-16.0); Lymphocytes Absolute Auto 1000 /uL (1100-4500); Lymphocytes Percent Auto 32.4 % (25-40); Mean Corpuscular HGB Conc 34.2 % (30-36); Mean Corpuscular Hemoglobin 31.2 PG (26-34); Mean Corpuscular Volume 91.1 fL (80-100); Monocytes Absolute Auto 300 /uL (0-900); Neutrophils Absolute Auto 1700 /uL (1500-7000); Neutrophils Percent Auto 55.5 % (50-75); Platelet Count 236 X10^3/uL (150-400); Red Blood Cell Count 4.03 X10^6/uL (4.0-5.2); Red Cell Distribution Width 12.7 % (11.6-14.8); White Blood Cell Count 3.1 X10^3/uL (4.5-11.0)
[2019-04-03 10:12] LABS: Alanine Aminotransferase 19 IU/L (<35); Albumin 4.7 g/dL (3.5-5.0); Albumin Globulin Ratio 1.1 (1.0-2.8); Alkaline Phosphatase 57 U/L (38-126); Aspartate Aminotransferase 32 IU/L (14-36); BUN Creatinine Ratio 17.5 (6-22); Bilirubin Total 0.6 mg/dL (0.2-1.3); Blood Urea Nitrogen 14 mg/dL (7-17); Calcium 9.7 mg/dL (8.4-10.2); Carbon Dioxide 31 mmol/L (22-32); Chloride 103 mmol/L (98-107); Estimated Glomerular Filt Rate > 60.0 mL/min (>60); Globulin 4.1 g/dL (1.7-4.1); Glucose 86 mg/dL (80-110); HEMOLYSIS < 15 (0-50); Potassium 4.1 mmol/L (3.4-5.1); Sodium 140 mmol/L (137-145); Total Protein 8.8 g/dL (6.3-8.2)
[2019-04-07 14:23] LABS: Free Kappa Light Chain 109.5 mg/L (3.3-19.4); Free Kappa/ Lambda Ratio 19.28 (0.26-1.65); Free Lambda 5.7 mg/L (5.7-26.3)
[2019-04-07 15:30] LABS: Immunoglobulin A 15 mg/dL (20-320); Immunoglobulin G, Quantitative 1950 mg/dL (600-1540); Immunoglobulin M, Quantitative 6 mg/dL (50-300)
[2019-04-08 18:20] LABS: Abnormal Protein Band 1 1.5 g/dL (NONE DETECTED); Albumin 4.4 g/dL (3.8-4.8); Alpha 1 Globulin 0.3 g/dL (0.2-0.3); Alpha 2 Globulin 0.7 g/dL (0.5-0.9); Beta 1 Globulin 0.4 g/dL (0.4-0.6); Gamma Globulin 1.7 g/dL (0.8-1.7); Protein, Total 7.7 g/dL (6.1-8.1)
== END ==
PROVIDERS: PCP Internal Medicine; Visit Provider Internal Medicine
DX: C90.00 Multiple myeloma not having achieved remission (principal)
CPT/HCPCS: 36415; 80053; 82784; 83883; 84155; 84165; 85025

== ENCOUNTER → 2019-10-30 11:20 | Outpatient (CLI) | payer MEDICARE, OTHER, SELFPAY ==
[2019-10-30 11:47] LABS: Eosinophils Percent Auto 2.8 % (2-4); Mean Corpuscular HGB Conc 35.4 % (30-36); Mean Corpuscular Volume 90.4 fL (80-100); Monocytes Percent Auto 9.3 % (3-14); Neutrophils Percent Auto 65.9 % (50-75); Platelet Count 249 X10^3/uL (150-400); Red Blood Cell Count 3.76 X10^6/uL (4.0-5.2); Red Cell Distribution Width 12.7 % (11.6-14.8); White Blood Cell Count 4.9 X10^3/uL (4.5-11.0)
[2019-10-30 11:48] LABS: Add Manual Diff / Slide Review NO; Basophils Absolute Auto 0 /uL (0-100); Eosinophils Absolute Auto 100 /uL (0-450); Lymphocytes Absolute Auto 1000 /uL (1100-4500); Monocytes Absolute Auto 500 /uL (0-900); Neutrophils Absolute Auto 3200 /uL (1500-7000)
[2019-10-30 12:04] LABS: Alanine Aminotransferase 21 IU/L (<35); Albumin 4.4 g/dL (3.5-5.0); Albumin Globulin Ratio 1.1 (1.0-2.8); Alkaline Phosphatase 67 U/L (38-126); Aspartate Aminotransferase 32 IU/L (14-36); BUN Creatinine Ratio 22.7 (6-22); Bilirubin Total 0.4 mg/dL (0.2-1.3); Blood Urea Nitrogen 17 mg/dL (7-17); Calcium 10.5 mg/dL (8.4-10.2); Carbon Dioxide 32 mmol/L (22-32); Chloride 102 mmol/L (98-107); Estimated Glomerular Filt Rate > 60.0 mL/min (>60); Glucose 86 mg/dL (80-110); HEMOLYSIS < 15 (0-50); Potassium 3.8 mmol/L (3.4-5.1); Sodium 137 mmol/L (137-145); Total Protein 8.4 g/dL (6.3-8.2)
[2019-10-31 05:36] LABS: Immunoglobulin A 15 mg/dL (87-352); Immunoglobulin G, Quantitative 1952 mg/dL (586-1602); Immunoglobulin M, Quantitative 6 mg/dL (26-217)
[2019-11-02 16:08] LABS: Albumin 4.1 g/dL (2.9-4.4); Alpha-1-Globulin 0.3 g/dL (0.0-0.4); Alpha-2-Globulin 0.7 g/dL (0.4-1.0); Gamma Globulin 1.8 g/dL (0.4-1.8); Globulin Total 3.4 g/dL (2.2-3.9); Protein, Total 7.5 g/dL (6.0-8.5)
[2019-11-08 14:28] LABS: Free Kappa Lt Chains, Serum 143.7; Free Lambda Lt Chains,Serum 7.4
== END ==
PROVIDERS: PCP Internal Medicine; Referring Provider Internal Medicine; Visit Provider Internal Medicine
DX: C90.00 Multiple myeloma not having achieved remission (principal)
CPT/HCPCS: 36415; 80053; 82784; 83883; 84155; 84165; 85025

== ENCOUNTER → 2019-11-02 16:30 | Outpatient (CLI) | payer MEDICARE, OTHER, SELFPAY ==
--- NOTE | 2019-11-02 16:33 | DI.MG.S_ITS ---
BILATERAL DIGITAL SCREENING MAMMOGRAM 3D/2D WITH CAD: 11/02/2019 CLINICAL: Routine screening. Family history of breast cancer. Comparison is made to exams dated: 10/04/2018 mammogram, 09/03/2017 mammogram, and 05/15/2016 mammogram - [facility]. The tissue of both breasts is heterogeneously dense. This may lower the sensitivity of mammography. Current study was also evaluated with a Computer Aided Detection (CAD) system. No significant masses, calcifications, or other findings are seen in either breast. There has been no significant interval change. IMPRESSION: NEGATIVE There is no mammographic evidence of malignancy. A 1 year screening mammogram is recommended. This exam was interpreted at Station ID: [id number]. NOTE: For mammograms, a report in lay terms will be sent to the patient. Approximately 15% of breast malignancies will not be visualized mammographically. In the management of a palpable breast mass, a negative mammogram must not discourage biopsy of a clinically suspicious lesion. Electronically Signed By: Sergio avila/ashwin:11/02/2019 16:54:13 letter sent: Normal Exam ACR BI-RADS Category 1: Negative 3341F
== END ==
PROVIDERS: PCP Internal Medicine; Referring Provider Internal Medicine; Visit Provider Internal Medicine
DX: Z12.31 Encounter for screening mammogram for malignant neoplasm of breast (principal); Z80.3 Family history of malignant neoplasm of breast
CPT/HCPCS: 77063; 77067

== ENCOUNTER → 2020-01-06 10:03 | Outpatient (CLI) | payer MEDICARE, OTHER, SELFPAY ==
--- NOTE | 2020-01-06 | DI.RAD.S_ITS ---
PROCEDURE: XR FOOT RT MIN 3V INDICATIONS: low back pain due to foot injury TECHNIQUE: 3 views of the foot were acquired. COMPARISON: None. FINDINGS: Bones: No acute fractures or dislocations. Degenerative changes of the right 1st metatarsophalangeal joint and 1st interphalangeal joint. Degenerative changes of the dorsal right midfoot. No suspicious bony lesions. Soft tissues: No tibiotalar joint effusion. Achilles tendon appears normal. IMPRESSION: Right foot without acute or subacute osseous abnormalities. If there are persistent symptoms or clinical suspicion for pathology, then repeat radiographs or advanced imaging (CT, MRI or bone scan) should be considered for further evaluation. Dictated by: Yariel Ward M.D. on 01/06/2020 at 16:05 Approved by: Yariel Ward M.D. on 01/06/2020 at 16:08
== END ==
PROVIDERS: PCP Internal Medicine; Referring Provider Internal Medicine; Visit Provider Internal Medicine
DX: S99.921A Unspecified injury of right foot, initial encounter (principal); M54.5 Low back pain; X58.XXXA Exposure to other specified factors, initial encounter
CPT/HCPCS: 73630

== ENCOUNTER → 2020-09-13 09:10 | Outpatient (CLI) | payer MEDICARE, OTHER, SELFPAY ==
[2020-09-13 10:09] LABS: Add Manual Diff / Slide Review NO; Basophils Absolute Auto 0 /uL (0-100); Basophils Percent Auto 0.6 % (0-2); Eosinophils Absolute Auto 100 /uL (0-450); Eosinophils Percent Auto 1.6 % (2-4); Hematocrit 36.1 % (36-46); Hemoglobin 12.2 g/dL (12.0-16.0); Lymphocytes Absolute Auto 1000 /uL (1100-4500); Lymphocytes Percent Auto 19.6 % (25-40); Mean Corpuscular HGB Conc 33.8 % (30-36); Mean Corpuscular Hemoglobin 31.2 PG (26-34); Mean Corpuscular Volume 92.1 fL (80-100); Monocytes Absolute Auto 300 /uL (0-900); Monocytes Percent Auto 6.1 % (3-14); Neutrophils Absolute Auto 3600 /uL (1500-7000); Neutrophils Percent Auto 72.1 % (50-75); Platelet Count 264 X10^3/uL (150-400); Red Blood Cell Count 3.92 X10^6/uL (4.0-5.2); Red Cell Distribution Width 13.5 % (11.6-14.8); White Blood Cell Count 4.9 X10^3/uL (4.5-11.0)
[2020-09-13 10:23] LABS: Alanine Aminotransferase 17 IU/L (<35); Albumin 4.5 g/dL (3.5-5.0); Alkaline Phosphatase 63 U/L (38-126); Aspartate Aminotransferase 31 IU/L (14-36); BUN Creatinine Ratio 24.4 (6-22); Bilirubin Total 0.2 mg/dL (0.2-1.3); Blood Urea Nitrogen 19 mg/dL (7-17); Carbon Dioxide 31 mmol/L (22-32); Chloride 104 mmol/L (98-107); Estimated Glomerular Filt Rate > 60.0 mL/min (>60); Globulin 4.5 g/dL (1.7-4.1); Glucose 77 mg/dL (80-110); HEMOLYSIS < 15 (0-50); Potassium 4.1 mmol/L (3.4-5.1); Sodium 138 mmol/L (137-145)
[2020-09-14 14:11] LABS: Free Lambda Lt Chains,Serum 6.8 mg/L (5.7-26.3)
[2020-09-15 19:36] LABS: Albumin 4.1 g/dL (2.9-4.4); Alpha-1-Globulin 0.2 g/dL (0.0-0.4); Alpha-2-Globulin 0.7 g/dL (0.4-1.0); Gamma Globulin 2.2 g/dL (0.4-1.8); Immunoglobulin A, Serum 14 mg/dL (87-352); Immunoglobulin G,Serum 2347 mg/dL (586-1602); Immunoglobulin M, Serum 7 mg/dL (26-217); Protein, Total 8.1 g/dL (6.0-8.5)
== END ==
PROVIDERS: PCP Internal Medicine; Referring Provider Internal Medicine; Visit Provider Internal Medicine
DX: D47.2 Monoclonal gammopathy (principal)
CPT/HCPCS: 36415; 80053; 82784; 83883; 84155; 84165; 85025; 86334

== ENCOUNTER → 2021-01-25 17:39 | Outpatient (CLI) | payer MEDICARE, OTHER, SELFPAY ==
--- NOTE | 2021-01-25 | DI.MG.S_ITS ---
BILATERAL DIGITAL SCREENING MAMMOGRAM 3D/2D WITH CAD: 01/25/2021 CLINICAL: Routine screening. Family history of breast cancer. Comparison is made to exams dated: 10/04/2018 mammogram, 11/02/2019 mammogram, and 09/03/2017 mammogram - [facility]. The tissue of both breasts is heterogeneously dense. This may lower the sensitivity of mammography. Current study was also evaluated with a Computer Aided Detection (CAD) system. There is a stable benign mass in the right breast. There also are stable benign calcifications in both breasts. There are mole markers on the left breast. No significant masses, calcifications, or other findings are seen in either breast. There has been no significant interval change. IMPRESSION: BENIGN There is no mammographic evidence of malignancy. A 1 year screening mammogram is recommended. This exam was interpreted at Station ID: [id number]. NOTE: For mammograms, a report in lay terms will be sent to the patient. Approximately 15% of breast malignancies will not be visualized mammographically. In the management of a palpable breast mass, a negative mammogram must not discourage biopsy of a clinically suspicious lesion. Electronically Signed By: Kike Pollard acr/penrad:01/26/2021 08:06:07 letter sent: Normal Exam ACR BI-RADS Category 2: Benign Finding(s) 3342F
== END ==
PROVIDERS: PCP Internal Medicine; Referring Provider Internal Medicine; Visit Provider Internal Medicine
DX: Z12.31 Encounter for screening mammogram for malignant neoplasm of breast (principal)
CPT/HCPCS: 77063; 77067

== ENCOUNTER → 2021-03-25 10:19 | Outpatient (CLI) | payer MEDICARE, OTHER, SELFPAY ==
[2021-03-25 11:51] LABS: Add Manual Diff / Slide Review NO; Basophils Absolute Auto 0 /uL (0-100); Basophils Percent Auto 0.9 % (0-2); Eosinophils Absolute Auto 200 /uL (0-450); Eosinophils Percent Auto 3.8 % (2-4); Hematocrit 35.9 % (36-46); Hemoglobin 12.3 g/dL (12.0-16.0); Lymphocytes Absolute Auto 1000 /uL (1100-4500); Lymphocytes Percent Auto 25.5 % (25-40); Mean Corpuscular HGB Conc 34.2 % (30-36); Mean Corpuscular Hemoglobin 31.1 PG (26-34); Mean Corpuscular Volume 90.9 fL (80-100); Monocytes Absolute Auto 400 /uL (0-900); Neutrophils Absolute Auto 2400 /uL (1500-7000); Neutrophils Percent Auto 60.8 % (50-75); Platelet Count 235 X10^3/uL (150-400); Red Blood Cell Count 3.95 X10^6/uL (4.0-5.2); Red Cell Distribution Width 12.8 % (11.6-14.8)
[2021-03-25 12:15] LABS: Alanine Aminotransferase 43 IU/L (<35); Albumin 4.4 g/dL (3.5-5.0); Albumin Globulin Ratio 1.2 (1.0-2.8); Alkaline Phosphatase 86 U/L (38-126); Aspartate Aminotransferase 52 IU/L (14-36); BUN Creatinine Ratio 18.6 (6-22); Bilirubin Total 0.4 mg/dL (0.2-1.3); Blood Urea Nitrogen 13 mg/dL (7-17); Calcium 10.3 mg/dL (8.4-10.2); Carbon Dioxide 29 mmol/L (22-32); Chloride 101 mmol/L (98-107); Estimated Glomerular Filt Rate > 60.0 mL/min (>60); Globulin 3.8 g/dL (1.7-4.1); Glucose 98 mg/dL (80-110); HEMOLYSIS 32 (0-50); Potassium 4.6 mmol/L (3.4-5.1); Sodium 137 mmol/L (137-145); Total Protein 8.2 g/dL (6.3-8.2)
[2021-03-26 10:43] LABS: IGA 13 mg/dL (87-352); IGG 2072 mg/dL (586-1602); IGM 6 mg/dL (26-217)
[2021-03-27 14:09] LABS: Albumin 3.6 g/dL (2.9-4.4); Alpha-1-Globulin 0.3 g/dL (0.0-0.4); Alpha-2-Globulin 0.8 g/dL (0.4-1.0); Free Kappa Lt Chains, Serum 154.4 mg/L (3.3-19.4); Free Lambda Lt Chains,Serum 7.7 mg/L (5.7-26.3); Gamma Globulin 2.2 g/dL (0.4-1.8); Globulin Total 4.2 g/dL (2.2-3.9); Protein, Total 7.8 g/dL (6.0-8.5)
== END ==
PROVIDERS: PCP Internal Medicine; Referring Provider Internal Medicine; Visit Provider Internal Medicine
DX: C90.00 Multiple myeloma not having achieved remission (principal)
CPT/HCPCS: 36415; 80053; 82784; 83883; 84155; 84165; 85025

== ENCOUNTER → 2021-09-18 11:54 | Outpatient (CLI) | payer MEDICARE, OTHER, SELFPAY ==
[2021-09-18 12:58] LABS: Add Manual Diff / Slide Review NO; Basophils Absolute Auto 0 /uL (0-100); Basophils Percent Auto 0.9 % (0-2); Eosinophils Absolute Auto 100 /uL (0-450); Eosinophils Percent Auto 1.8 % (2-4); Hematocrit 36.4 % (36-46); Hemoglobin 12.8 g/dL (12.0-16.0); Lymphocytes Absolute Auto 1400 /uL (1100-4500); Lymphocytes Percent Auto 30.7 % (25-40); Mean Corpuscular HGB Conc 35.3 % (30-36); Mean Corpuscular Volume 90.6 fL (80-100); Monocytes Absolute Auto 300 /uL (0-900); Monocytes Percent Auto 6.8 % (3-14); Neutrophils Absolute Auto 2700 /uL (1500-7000); Neutrophils Percent Auto 59.8 % (50-75); Platelet Count 238 X10^3/uL (150-400); Red Blood Cell Count 4.01 X10^6/uL (4.0-5.2); Red Cell Distribution Width 12.5 % (11.6-14.8); White Blood Cell Count 4.6 X10^3/uL (4.5-11.0)
[2021-09-18 13:21] LABS: Alanine Aminotransferase 22 IU/L (<35); Albumin 4.9 g/dL (3.5-5.0); Albumin Globulin Ratio 1.1 (1.0-2.8); Alkaline Phosphatase 69 U/L (38-126); Aspartate Aminotransferase 38 IU/L (14-36); BUN Creatinine Ratio 22.4 (6-22); Bilirubin Total 0.4 mg/dL (0.2-1.3); Blood Urea Nitrogen 19 mg/dL (7-17); Calcium 10.3 mg/dL (8.4-10.2); Carbon Dioxide 32 mmol/L (22-32); Chloride 101 mmol/L (98-107); Estimated Glomerular Filt Rate > 60 mL/min (>60); Globulin 4.5 g/dL (1.7-4.1); Glucose 120 mg/dL (80-110); HEMOLYSIS < 15 (0-50); Potassium 3.7 mmol/L (3.4-5.1); Sodium 139 mmol/L (137-145); Total Protein 9.4 g/dL (6.3-8.2)
[2021-09-19 16:47] LABS: Free Kappa Lt Chains, Serum 118.9 mg/L (3.3-19.4); Free Lambda Lt Chains,Serum 7.8 mg/L (5.7-26.3)
[2021-09-20 16:38] LABS: Immunoglobulin A, Serum 13 mg/dL (64-422); Immunoglobulin G,Serum 2176 mg/dL (586-1602); Immunoglobulin M, Serum 7 mg/dL (26-217)
[2021-09-20 20:36] LABS: Albumin 3.8 g/dL (2.9-4.4); Alpha 1 Globulin 0.3 g/dL (0.0-0.4); Alpha 2 Globulin 0.8 g/dL (0.4-1.0); Beta 1 Globulin 0.8 g/dL (0.7-1.3); Gamma Globulin 1.9 g/dL (0.4-1.8); Immunoglobulin A 14 mg/dL (64-422); Immunoglobulin G 2188 mg/dL (586-1602); Immunoglobulin M 7 mg/dL (26-217); Protein, Total 7.7 g/dL (6.0-8.5)
[2021-09-26 11:47] LABS: IGA 13; IGG 2176
[2021-09-26 11:48] LABS: IGM 7
== END ==
PROVIDERS: PCP Internal Medicine; Referring Provider Internal Medicine Hematology & Oncology; Visit Provider Internal Medicine Hematology & Oncology
DX: C90.00 Multiple myeloma not having achieved remission (principal)
CPT/HCPCS: 36415; 80053; 82784; 83883; 84155; 84165; 85025; 86334

== ENCOUNTER 2021-10-28 16:10 | Emergency (ER) | payer MEDICARE, OTHER, SELFPAY ==
[2021-10-28] VITALS (10 sets, daily range): BP systolic 105–119; BP diastolic 52–77; PULSE 91–109; RESP 18–20; TEMP 36.6; O2SAT 91–100; BMI 22.6
[2021-10-28] MEDS: SODIUM CHLORIDE 0.9% 1,000 ML 1000 ML IV (17:33)
[2021-10-28] MEDS: ONDANSETRON 4 MG/2 ML INJ IV ×2 (17:33→20:54)
[2021-10-28 17:44] LABS: Add Manual Diff / Slide Review NO; Basophils Absolute Auto 0 /uL (0-100); Basophils Percent Auto 0.4 % (0-2); Eosinophils Absolute Auto 100 /uL (0-450); Eosinophils Percent Auto 0.6 % (2-4); Hematocrit 35.5 % (36-46); Hemoglobin 12.5 g/dL (12.0-16.0); Lymphocytes Absolute Auto 800 /uL (1100-4500); Lymphocytes Percent Auto 7.6 % (25-40); Mean Corpuscular HGB Conc 35.1 % (30-36); Mean Corpuscular Hemoglobin 31.5 PG (26-34); Mean Corpuscular Volume 89.9 fL (80-100); Monocytes Absolute Auto 300 /uL (0-900); Monocytes Percent Auto 2.8 % (3-14); Neutrophils Absolute Auto 9300 /uL (1500-7000); Neutrophils Percent Auto 88.6 % (50-75); Platelet Count 273 X10^3/uL (150-400); Red Blood Cell Count 3.95 X10^6/uL (4.0-5.2); Red Cell Distribution Width 12.7 % (11.6-14.8); White Blood Cell Count 10.4 X10^3/uL (4.5-11.0)
[2021-10-28 17:57] LABS: Lactate (Lactic Acid) 0.6 mmol/L (0.7-2.1)
[2021-10-28 17:58] LABS: Alanine Aminotransferase 24 IU/L (<35); Albumin 4.8 g/dL (3.5-5.0); Alkaline Phosphatase 55 U/L (38-126); Aspartate Aminotransferase 38 IU/L (14-36); BUN Creatinine Ratio 17.1 (6-22); Bilirubin Total 0.5 mg/dL (0.2-1.3); Blood Urea Nitrogen 12 mg/dL (7-17); Calcium 9.5 mg/dL (8.4-10.2); Carbon Dioxide 30 mmol/L (22-32); Chloride 101 mmol/L (98-107); Estimated Glomerular Filt Rate > 60 mL/min (>60); Globulin 4.7 g/dL (1.7-4.1); Glucose 93 mg/dL (80-110); HEMOLYSIS < 15 (0-50); Lipase 155 U/L (23-300); Potassium 3.9 mmol/L (3.4-5.1); Sodium 136 mmol/L (137-145); Total Protein 9.5 g/dL (6.3-8.2)
[2021-10-28 18:25] LABS: Procalcitonin 0.06 ng/mL (<0.5)
--- NOTE | 2021-10-28 19:14 | ED_ITS ---
HPI - General Adult General Chief complaint: Abdominal Pain Stated complaint: chronic diverticulitious/pain in left side Time Seen by Provider: 10/28/21 18:15 Source: patient Mode of arrival: Ambulatory History of Present Illness HPI narrative: 71-year-old woman with low-grade multiple myeloma with recurrent abdominal pain since October 02. It is typically left lower quadrant she was initially diagnosed with diverticulitis and started on Cipro and Flagyl. She had some difficulty with the Flagyl and after 14 days completed 10 days of antibiotics. After stopping was well for approximately 3 days then developed additional pain. Was again started on Cipro and Flagyl and again had recurrent pain is it is discontinued. She had a CT scan about a week ago head and resulted better available on her portal from the [facility]. CT scan indicates proctitis without overt diverticulitis. She was seen by gastroenterology who recommended that she continue the antibiotics to complete the 10 day course and recommended follow-up with anticipation of colonoscopy in the near future. Within 3 days of discontinuing antibiotics she again had left lower quadrant pain and today was noticing body aches and a sense of overall malaise a comes in for further evaluation. She does not report over fevers notes that she has been having intermittent diarrhea and constipation. She has been having increased diarrhea over the last month and had had a PCR stool sample that did not show Clostridium difficile or other pathology. She denies chest pain, palpitations, headaches, lower extremity edema. Related Data Home Medications Medication Instructions Recorded Confirmed esomeprazole magnesium 40 mg 40 mg PO PRN ##0 06/03/12 09/07/20 capsule,delayed release (Nexium) omega 4-lmt-sec-fish oil 1,000 mg 1,000 mg PO QDAY ##0 08/14/16 09/07/20 (120 mg-180 mg) capsule (Fish Oil) gabapentin 300 mg capsule 300 mg PO PRN PRN Mild Pain (Scale 11/12/17 09/07/20 Score 1-4) calcium 600 mg capsule 600 mg PO DAILY 04/26/20 09/07/20 cholecalciferol (vitamin D3) 50 50 mcg PO DAILY 04/26/20 09/07/20 mcg (2,000 unit) capsule (Vitamin D3) Previous Rx's Medication Instructions Recorded lorazepam 0.5 mg tablet 0.5 mg PO Q6-8H PRN Anxiety #45 04/27/20 tabs levofloxacin 750 mg tablet 750 mg PO DAILY #7 tabs 10/28/21 Allergies Allergy/AdvReac Type Severity Reaction Status Date / Time levofloxacin Allergy Severe TENDON PAIN Verified 10/28/21 16:36 Penicillins Allergy Unknown UNKNOWN Verified 10/28/21 16:36 codeine AdvReac Mild Nausea Verified 10/28/21 16:36 Review of Systems Review of Systems Narrative: Remainder of complete review of systems is otherwise unremarkable except for that included in the HPI. Patient History Medical History Chronic GERD Diverticulitis Hemorrhoids Hypercalcemia Multiple myeloma Osteopenia Surgical History H/O tubal ligation History of appendectomy History of parathyroidectomy Hx of tonsillectomy Previous section Family History Mother Cancer Hypertension Father Heart disease Social History marital status: household members: spouse housing: house Smoking Status: Never smoker alcohol intake: current Smoking Status: Never smoker alcohol intake frequency: a few times a week Substance Use Type: does not use Exam Initial Vital Signs Initial Vital Signs: Vital Signs Temperature 97.8 F 10/28/21 16:36 Pulse Rate 102 H 10/28/21 16:36 Respiratory Rate 18 10/28/21 16:36 Blood Pressure 118/77 10/28/21 16:36 Pulse Oximetry 97 10/28/21 16:36 Oxygen Delivery Method 10/28/21 16:36 General: Healthy appearing, in no acute distress. Able to give a complete and coherent history. Well-nourished well-developed HEENT: Moist mucous membranes, normal sclera with reactive pupils, Neck: No JVD, supple Respiratory: Lungs are clear to auscultation, no wheezing no rales no rhonchi. Full and symmetrical air movement Cardiac: Regular rate and rhythm no murmurs no bruits Abdomen: Soft, tenderness in the left lower quadrant without rebound or guarding good bowel tones, no flank pain Skin: Warm and dry, no rashes Neurologic: Grossly neurologically intact with no obvious asymmetries or abnormalities Extremities: No trauma, well perfused Psych: Cooperative, appropriate insight and affect Course Orders Ordered: Discontinued Medications Hydromorphone HCl (Hydromorphone 0.5 Mg Inj) 0.5 mg IV Q15MIN PRN PRN Reason: Pain, Last Admin: 10/28/21 20:54 Dose: 0.5 mg Documented By: AT Sodium Chloride (Normal Saline 0.9%) 1,000 mls @ 1,000 mls/hr IV BOLUS ONE Stop: 10/28/21 17:44 Last Infusion: 10/28/21 19:22 Dose: 0 mls/hr Documented By: Admin: 10/28/21 17:33 Dose: 1,000 mls/hr Documented By: AT Ondansetron HCl (Ondansetron 4 Mg/2 Ml Inj) 4 mg IV NOW ONE Stop: 10/28/21 16:45 Last Admin: 10/28/21 17:33 Dose: 4 mg Documented By: AT Ondansetron HCl (Ondansetron 4 Mg/2 Ml Inj) 4 mg IV NOW ONE Stop: 10/28/21 20:51 Last Admin: 10/28/21 20:54 Dose: 4 mg Documented By: AT Vital Signs Vital signs: Vital Signs - 8 hr 10/28/21 20:49 10/28/21 21:00 10/28/21 21:30 Pulse Rate 109 H 107 H 99 H Pulse Oximetry 91 95 96 10/28/21 22:00 10/28/21 22:30 10/28/21 23:00 Pulse Rate 97 H 91 H 94 H Pulse Oximetry 94 95 93 10/28/21 23:34 Pulse Rate 93 H Pulse Oximetry 95 Medical Decision Making Lab Data Result diagrams: 10/28/21 17:15 10/28/21 17:15 Labs: Lab Results 10/28/21 10/28/21 10/28/21 Range/Units 17:15 17:15 17:15 WBC 10.4 (4.5-11.0) X10^3/uL RBC 3.95 L (4.0-5.2) X10^6/uL Hgb 12.5 (12.0-16.0) g/dL Hct 35.5 L (36-46) % MCV 89.9 (80-100) fL MCH 31.5 (26-34) PG MCHC 35.1 (30-36) % RDW 12.7 (11.6-14.8) % Plt Count 273 (150-400) X10^3/uL Neut % (Auto) 88.6 H (50-75) % Lymph % (Auto) 7.6 L (25-40) % Greer % (Auto) 2.8 L (3-14) % Eos % (Auto) 0.6 L (2-4) % Baso % (Auto) 0.4 (0-2) % Neut # (Auto) 9300 H (6591-1179) /uL Lymph # (Auto) 800 L (1299-6836) /uL Greer # (Auto) 300 (0-900) /uL Eos # (Auto) 100 (0-450) /uL Baso # (Auto) 0 (0-100) /uL Sodium 136 L (137-145) mmol/L Potassium 3.9 (3.4-5.1) mmol/L Chloride 101 (98-107) mmol/L Carbon Dioxide 30 (22-32) mmol/L BUN 12 (7-17) mg/dL Creatinine 0.70 (0.52-1.04) mg/dL Estimated GFR > 60 (>60) mL/min BUN/Creatinine Ratio 17.1 (6-22) Glucose 93 (80-110) mg/dL Lactate 0.6 L (0.7-2.1) mmol/L Calcium 9.5 (8.4-10.2) mg/dL Total Bilirubin 0.5 (0.2-1.3) mg/dL AST 38 H (14-36) IU/L ALT 24 (<35) IU/L Alkaline Phosphatase 55 (38-126) U/L Total Protein 9.5 H (6.3-8.2) g/dL Albumin 4.8 (3.5-5.0) g/dL Globulin 4.7 H (1.7-4.1) g/dL Albumin/Globulin Ratio 1.0 (1.0-2.8) Lipase 155 (23-300) U/L Procalcitonin (<0.5) ng/mL 10/28/21 Range/Units 17:15 WBC (4.5-11.0) X10^3/uL RBC (4.0-5.2) X10^6/uL Hgb (12.0-16.0) g/dL Hct (36-46) % MCV (80-100) fL MCH (26-34) PG MCHC (30-36) % RDW (11.6-14.8) % Plt Count (150-400) X10^3/uL Neut % (Auto) (50-75) % Lymph % (Auto) (25-40) % Greer % (Auto) (3-14) % Eos % (Auto) (2-4) % Baso % (Auto) (0-2) % Neut # (Auto) (9924-2285) /uL Lymph # (Auto) (3468-7017) /uL Greer # (Auto) (0-900) /uL Eos # (Auto) (0-450) /uL Baso # (Auto) (0-100) /uL Sodium (137-145) mmol/L Potassium (3.4-5.1) mmol/L Chloride (98-107) mmol/L Carbon Dioxide (22-32) mmol/L BUN (7-17) mg/dL Creatinine (0.52-1.04) mg/dL Estimated GFR (>60) mL/min BUN/Creatinine Ratio (6-22) Glucose (80-110) mg/dL Lactate (0.7-2.1) mmol/L Calcium (8.4-10.2) mg/dL Total Bilirubin (0.2-1.3) mg/dL AST (14-36) IU/L ALT (<35) IU/L Alkaline Phosphatase (38-126) U/L Total Protein (6.3-8.2) g/dL Albumin (3.5-5.0) g/dL Globulin (1.7-4.1) g/dL Albumin/Globulin Ratio (1.0-2.8) Lipase (23-300) U/L Procalcitonin 0.06 (<0.5) ng/mL Urine Dip Bedside Urine Glucose Negative Bedside Urine Bilirubin - Negative Bedside Urine Ketone - Negative Urine Specific [place] 1.010 Bedside Urine Occult Blood - Negative Bedside Urine pH 6.0 Bedside Urine Protein - Negative Bedside Urine Urobilinogen - Negative Bedside Urine Nitrite - Negative Bedside Urine Leukocytes - Negative Esterase Point of care testing: Urine Dip Bedside Urine Glucose Negative Bedside Urine Bilirubin - Negative Bedside Urine Ketone - Negative Urine Specific [place] 1.010 Bedside Urine Occult Blood - Negative Bedside Urine pH 6.0 Bedside Urine Protein - Negative Bedside Urine Urobilinogen - Negative Bedside Urine Nitrite - Negative Bedside Urine Leukocytes - Negative Esterase Imaging Data CT scan - abdomen/pelvis: Radiologist's Impression: FINDINGS:? Image quality:? Excellent.? ? Lung bases:? Bibasilar scars and atelectasis.? Small hiatal hernia.? ? Heart:? No significant findings. ? ? ABDOMEN: Liver:? Unremarkable.? ? Gallbladder:? Unremarkable.? ? Biliary ducts:? Unremarkable.? ? Pancreas:? Unremarkable.? ? Spleen:? Unremarkable.? ? Adrenal Glands:? Unremarkable.? ? Kidneys and Ureters:? Unremarkable.? ? ? Stomach and Bowel:? Stomach, small bowel loops, and colon are normal in caliber.? There are scattered colonic diverticula.? There is mild focal thickening in the distal descending colon and proximal sigmoid colon with pericolonic stranding compatible with mild diverticulitis.? There is a large amount of stool in colon. Peritoneum:? There is a trace amount of free fluid in the left pericolic gutter.? No free air.? ? Ventral Wall: ? No hernia.? Abdominal Nodes:? No retroperitoneal or mesenteric adenopathy by size criteria.? Vessels:? Aorta and inferior vena cava are normal in size.? ? PELVIS: Pelvic Organs:? Unremarkable.? ? Bladder:? Unremarkable.? ? Pelvic Nodes: No enlarged lymph nodes.? Miscellaneous: No inguinal hernias are seen. ? ? ? Bones:? Unremarkable.? IMPRESSION:? ? 1. Mild acute diverticulitis of the distal descending/proximal sigmoid colon.? No findings to suggest diverticular perforation.? No abscess. 2. After adequate treatment of acute illness, please consider colonoscopy as colon cancer could have a similar imaging appearance. 3. Large amount of stool in colon.? Dictated by: Jimenez Child M.D. on 10/28/2021 at 22:15 ? ? MDM Narrative Medical decision making narrative: Recurrent left lower quadrant pain 3rd episode of diverticulitis since the beginning of September. CT scan this time does suggest mild diverticulitis rather than proctitis. She is not septic and no evidence of other infectious etiology. At this time will have her try a course of Levaquin rather than the Cipro and Flagyl combination. We did briefly discuss no antibiotic treatment. We also talked about increasing MiraLax to get rid of the fairly significant stool load on the right side. At this point she is not acutely toxic is safe for home discharge does have follow-up with Gastroenterology with anticipated colonoscopy in the near future and she is safe for home discharge Discharge Plan Departure Patient Disposition: Home Clinical Impression: Diverticulitis Instructions: DI for Diverticulitis Activity Restrictions/Additional Instructions: Thank you for coming in tonight. It sounds like this month has been frustrating with for current presumed diverticulitis and diarrhea. Your lab work today was reassuring without evidence of overwhelming infection sepsis. The CT scan today as opposed to last week does suggest early developing diverticulitis. There are new guidelines that have been put forward as of March of 2021 suggesting that with mild outpatient diverticulitis there is no need for antibiotics. Given the fact that your having body aches and increasing pain today I am going to suggest that rather continuing with the Cipro and Flagyl that has continued to make you sick that we switch to Levaquin as a single dose antibiotic. The CT scan also notes on a moderate amount of stool throughout your colon. I would recommend using MiraLax that you have available at home to clean out your colon. You may find that once some of the firmer stool on the right side of your colon has completely cleared that your overall volume of diarrhea decreases significantly Finally, the next step is absolutely going to be continuing her follow-up with Gastroenterology and a colonoscopy Using 400 mg of ibuprofen (2 afar-scr-vdlcaod pills) and 1 Tylenol every 6 hours can be very helpful in controlling pain. If you find that you are getting worse or develop any new symptoms, please feel free to return to the emergency department for further evaluation. Prescriptions: New levofloxacin 750 mg tablet 750 mg PO DAILY Qty: 7 0RF No Action esomeprazole magnesium [Nexium] 40 MG capsule,delayed release(DR/EC) 40 mg PO PRN Qty: 0 omega 5-whg-xdh-fish oil [Fish Oil] 1,000 MG capsule 1,000 mg PO QDAY Qty: 0 gabapentin 300 mg Capsule 300 mg PO PRN PRN (Reason: Mild Pain (Scale Score 1-4)) calcium 600 mg Capsule 600 mg PO DAILY cholecalciferol (vitamin D3) [Vitamin D3] 50 mcg (2,000 unit) Capsule 50 mcg PO DAILY lorazepam 0.5 mg Tablet 0.5 mg PO Q6-8H PRN (Reason: Anxiety) Qty: 45 0RF Rx Instructions: I tab as needed every 6-8 hours for anxiety. Not intended for chronic/everyday use Referrals: Vahe Hubbard MD [Primary Care Provider] - Visit Report Forms: Patient Portal/API
--- NOTE | 2021-10-28 19:42 | DI.CT.S_ITS ---
PROCEDURE: CT ABDOMEN PELVIS W CON INDICATIONS: LLQ abdominal pain TECHNIQUE: After the administration of IV contrast, axial sections were acquired from the lung bases to the pubic symphysis. Coronal and sagittal reformats were performed. For radiation dose reduction, the following was used: automated exposure control, adjustment of mA and/or kV according to patient size. COMPARISON: [facility], CT, CT ABDOMEN PELVIS W CON, 03/08/2018, 21:07. FINDINGS: Image quality: Excellent. Lung bases: Bibasilar scars and atelectasis. Small hiatal hernia. Heart: No significant findings. ABDOMEN: Liver: Unremarkable. Gallbladder: Unremarkable. Biliary ducts: Unremarkable. Pancreas: Unremarkable. Spleen: Unremarkable. Adrenal Glands: Unremarkable. Kidneys and Ureters: Unremarkable. Stomach and Bowel: Stomach, small bowel loops, and colon are normal in caliber. There are scattered colonic diverticula. There is mild focal thickening in the distal descending colon and proximal sigmoid colon with pericolonic stranding compatible with mild diverticulitis. There is a large amount of stool in colon. Peritoneum: There is a trace amount of free fluid in the left pericolic gutter. No free air. Ventral Wall: No hernia. Abdominal Nodes: No retroperitoneal or mesenteric adenopathy by size criteria. Vessels: Aorta and inferior vena cava are normal in size. PELVIS: Pelvic Organs: Unremarkable. Bladder: Unremarkable. Pelvic Nodes: No enlarged lymph nodes. Miscellaneous: No inguinal hernias are seen. Bones: Unremarkable. IMPRESSION: 1. Mild acute diverticulitis of the distal descending/proximal sigmoid colon. No findings to suggest diverticular perforation. No abscess. 2. After adequate treatment of acute illness, please consider colonoscopy as colon cancer could have a similar imaging appearance. 3. Large amount of stool in colon. Dictated by: Jimenez Child M.D. on 10/28/2021 at 22:15 Approved by: Jimenez Child M.D. on 10/28/2021 at 22:20
[2021-10-28] MEDS: HYDROMORPHONE 0.5 MG INJ IV (20:54)
== END 2021-10-28 23:46 | disposition home or self-care (01) ==
PROVIDERS: Emergency Medicine; Emergency Provider Emergency Medicine; PCP Internal Medicine
DX: K57.32 Diverticulitis of large intestine without perforation or abscess without bleeding (principal); C90.00 Multiple myeloma not having achieved remission
CPT/HCPCS: 36415; 74177; 80053; 81003; 83605; 83690; 84145; 85025; 87040; 96361; 96374; 96375; 96376; 99284; J1170; J2405; Q9967

== ENCOUNTER → 2021-11-29 10:37 | Outpatient (CLI) | payer MEDICARE, OTHER, SELFPAY ==
[2021-11-29 11:39] LABS: COVID19 -Nasal RAPID Negative (Negative)
== END ==
PROVIDERS: PCP Internal Medicine; Visit Provider Surgery
DX: Z20.822 Contact with and (suspected) exposure to COVID-19 (principal); Z01.812 Encounter for preprocedural laboratory examination
CPT/HCPCS: 87635; C9803

== ENCOUNTER 2021-11-30 06:42 | Day surgery (SDC) | payer MEDICARE, OTHER, SELFPAY ==
[2021-11-30] VITALS (7 sets, daily range): BP systolic 88–100; BP diastolic 31–62; PULSE 70–79; RESP 11–16; TEMP 36.4–36.6; O2SAT 97–99; BMI 22.6
--- NOTE | 2021-11-30 | PATH_ITS ---
[facility] Accession Number: [id number] . 01 Material submitted: . colon - SIGMOID COLON POLYP . 01 Diagnosis: Sigmoid Colon, Polyp, Biopsy: Hyperplastic polyp. MRV 12/04/2021 1339 Local . 01 Electronically signed: . Imani Rueda MD, Pathologist NPI- [id number] . 01 Gross description: . SIGMOID COLON POLYP: Received in formalin are 2 fragment(s) of kruger, soft tissue measuring 0.1 x 0.1 x 0.1 cm to 0.4 x 0.3 x 0.2 cm submitted entirely in 1 cassette(s) /ARNOLD 12/01/2021 0035 Local . 01 Pathologist provided ICD-10: K63.5 . 01 CPT . 917776 Specimen Comment: A courtesy copy of this report has been sent to [phone] Performed at: 01 [facility] [address] [place] [address], [place], [place] [id number] MD Sergio Abrams MD Phone: [phone]
[2021-11-30] MEDS: LACTATED RINGERS 1,000 ML 42 ML IV (07:42)
--- NOTE | 2021-11-30 07:48 | PM.PREOP ---
Pre-operative Note COVID-19 COVID-19 status: Negative Result date/Date tested (Pos, Neg/Pending): 11/29/21 Interval Note History & Physical reviewed/Exam performed by Physician: Yes Changes to H&P: No ASA Class (for procedural sedation): II
[2021-11-30] MEDS: fentaNYL 250 MCG/5 ML INJ 100 MCG IV (08:02)
[2021-11-30] MEDS: MIDAZOLAM 5 MG/5 ML VIAL 3 MG IV (08:02)
--- NOTE | 2021-11-30 08:17 | P.OP.COLON_ITS ---
Operative Date/Time/Diagnoses Date of procedure: 11/30/21 Time of procedure: 08:17 Pre-op diagnosis: Abnormal imaging of the colon Post-op diagnosis: same Procedure & Clinicians Study performed: Colonoscopy Same procedure as scheduled: Yes Surgeon: Gabriel Hawkins Procedure Notes Procedure in detail: Surgeon: Gabriel Hawkins MD Procedure: The patient was brought to the endoscopy suite, placed in left lateral decubitus position. The patient was connected to monitoring devices. A time-out was performed. Sedation was administered. Once the patient was adequately sedated, a digital rectal exam was performed and was normal. The scope was then inserted and advanced to the cecum where the appendiceal orifice was identified and photographed. The scope was then slowly withdrawn over greater than 6 minutes. The mucosa was thoroughly inspected. There was significant left colon diverticulosis greatest in the sigmoid. There was a small polyp roughly 5 mm in the sigmoid colon removed with Jumbo forceps in 2 bites. The scope was retroflexed in the rectum. No other significant abnorma lities were noted. The scope was straightened and removed. The patient was awakened and brought to recovery. Versed: 3 mg Fentanyl: 100 mcg EBL: 5 mL Findings: Diverticulosis and sigmoid polyp Scope withdrawal time: 10 Sedation minutes: 18 Post-procedure Recommendations: Will call with biopsy results Follow up: weeks Disposition: PACU
== END 2021-11-30 08:51 | disposition home or self-care (01) ==
PROVIDERS: PCP Internal Medicine; Referring Provider Surgery; Visit Provider Surgery
PROC: 0DJD8ZZ Inspection of Lower Intestinal Tract, Via Natural or Artificial Opening Endoscopic (ICD-10-PCS; CPT 45378; principal; 2021-11-30 07:45)
DX: R93.3 Abnormal findings on diagnostic imaging of other parts of digestive tract (principal); K57.30 Diverticulosis of large intestine without perforation or abscess without bleeding; K63.5 Polyp of colon
CPT/HCPCS: 45380; 99152; J2250; J3010

== ENCOUNTER → 2022-02-15 11:04 | Outpatient (CLI) | payer MEDICARE, OTHER, SELFPAY ==
[2022-02-15 13:53] LABS: Clostridium Difficile Tox PCR Negative for C. diff (Negative)
== END ==
PROVIDERS: PCP Internal Medicine; Referring Provider Internal Medicine; Visit Provider Internal Medicine
DX: R19.7 Diarrhea, unspecified (principal)
CPT/HCPCS: 87493

== ENCOUNTER → 2022-02-17 08:01 | Outpatient (CLI) | payer MEDICARE, OTHER, SELFPAY ==
--- NOTE | 2022-02-17 08:06 | DI.MG.S_ITS ---
BILATERAL DIGITAL SCREENING MAMMOGRAM 3D/2D WITH CAD: 02/17/2022 CLINICAL: Routine screening. Family history of breast cancer. Comparison is made to exams dated: 01/25/2021 mammogram, 11/02/2019 mammogram, and 10/04/2018 mammogram - [facility]. Both breasts are heterogeneously dense, which may obscure small masses (category c / 51-75% glandular tissue). Current study was also evaluated with a Computer Aided Detection (CAD) system. There is a stable benign mass in the right breast. There also are stable benign calcifications in both breasts. There are mole markers on the left breast. No significant masses, calcifications, or other findings are seen in either breast. There has been no significant interval change. IMPRESSION: BENIGN There is no mammographic evidence of malignancy. A 1 year screening mammogram is recommended. Based on the Tyrer Cuzick model (a risk assessment model) the patient's lifetime risk is 8.3% and her 10 year risk is 5.7%. According to the ACR, ACS, and NCCN guidelines, an annual breast MRI exam along with mammogram is recommended if the patient's lifetime risk is 20% or greater. This exam was interpreted at Station ID: [id number]. NOTE: For mammograms, a report in lay terms will be sent to the patient. Approximately 15% of breast malignancies will not be visualized mammographically. In the management of a palpable breast mass, a negative mammogram must not discourage biopsy of a clinically suspicious lesion. Electronically Signed By: Yariel brice/ashwin:02/17/2022 09:56:52 letter sent: Normal Exam ACR BI-RADS Category 2: Benign Finding(s) 3342F
[2022-02-17 09:18] LABS: Hematocrit 34.7 % (36-46); Hemoglobin 11.9 g/dL (12.0-16.0); Mean Corpuscular HGB Conc 34.4 % (30-36); Mean Corpuscular Hemoglobin 31.2 PG (26-34); Mean Corpuscular Volume 90.7 fL (80-100); Platelet Count 242 X10^3/uL (150-400); Red Blood Cell Count 3.82 X10^6/uL (4.0-5.2); Red Cell Distribution Width 12.7 % (11.6-14.8); White Blood Cell Count 3.8 X10^3/uL (4.5-11.0)
[2022-02-17 09:40] LABS: Alanine Aminotransferase 23 IU/L (<35); Albumin 4.2 g/dL (3.5-5.0); Alkaline Phosphatase 79 U/L (38-126); Aspartate Aminotransferase 29 IU/L (14-36); BUN Creatinine Ratio 19.7 (6-22); Bilirubin Total 0.4 mg/dL (0.2-1.3); Blood Urea Nitrogen 14 mg/dL (7-17); Calcium 9.5 mg/dL (8.4-10.2); Carbon Dioxide 30 mmol/L (22-32); Chloride 102 mmol/L (98-107); Cholesterol 158 mg/dL (140-199); Estimated Glomerular Filt Rate > 60 mL/min (>60); Globulin 4.1 g/dL (1.7-4.1); Glucose 87 mg/dL (80-110); HDL Cholesterol 54 mg/dL (40-60); HEMOLYSIS < 15 (0-50); LDL Cholesterol Calculated 91 mg/dL (<100); Potassium 4.3 mmol/L (3.4-5.1); Sodium 139 mmol/L (137-145); Total Protein 8.3 g/dL (6.3-8.2); Triglycerides 63 mg/dL (35-150)
[2022-02-17 09:53] LABS: Vitamin D 25 Hydroxy (D3) 29.1 ng/mL (30.0-100.0)
[2022-02-17 10:08] LABS: TSH w/ Reflex to FT4 4.74 uIU/mL (0.47-4.68)
[2022-02-17 10:27] LABS: Vitamin B12 368 pg/mL (239-931)
[2022-02-17 10:46] LABS: Free T4, Direct Thyroxine 1.11 ng/dL (0.78-2.19)
== END ==
PROVIDERS: PCP Internal Medicine; Referring Provider Internal Medicine; Visit Provider Internal Medicine
DX: Z12.31 Encounter for screening mammogram for malignant neoplasm of breast (principal); Z80.3 Family history of malignant neoplasm of breast; E53.8 Deficiency of other specified B group vitamins; E78.2 Mixed hyperlipidemia; M85.80 Other specified disorders of bone density and structure, unspecified site; R19.7 Diarrhea, unspecified
CPT/HCPCS: 36415; 77063; 77067; 80053; 80061; 82306; 82607; 84439; 84443; 85027

== ENCOUNTER → 2022-02-20 11:00 | Outpatient (CLI) | payer MEDICARE, OTHER, SELFPAY ==
--- NOTE | 2022-02-20 | DI.MRI.S_ITS ---
PROCEDURE: MR BONE MARROW INDICATIONS: SMOLDERING MULTIPLE MYELOMA TECHNIQUE: Noncontrast sagittal T1 spin echo and STIR through the spine; coronal T1 spin echo and STIR through the bony thorax, coronal T1 spin echo and STIR through the bony pelvis and femurs. COMPARISON: None. FINDINGS: Image quality: Excellent. Spine: All visualized vertebral bodies are normally aligned. No vertebral body compression fractures. The bone marrow demonstrates no suspicious lesions or signal abnormalities. Degenerative endplate changes, loss of disc signal and disc height is seen in cervical spine, mid to lower thoracic spine and throughout lumbar spine with [id number] central canal stenosis seen at C5-6, C6-7, L1-2 through L4-5 levels. The visualized spinal cord demonstrates normal intramedullary signal. The conus is in expected position. No epidural or paravertebral soft tissue masses. Pelvis and hips: No suspicious bony lesion or edema is seen in pelvic bones or bilateral femur. No pelvic ring or sacral pathologic or insufficiency fractures. No evidence of avascular necrosis of femoral head. Bilateral hip joint osteoarthritic changes are seen with superior joint space and subchondral sclerosis. No significant joint effusion or abnormal bursal fluid. No muscle or tendon signal abnormalities. Soft tissues: No free pelvic fluid. No pathologic pelvic or inguinal adenopathy. Visualized bowel loops appear normal in caliber. Limited images through the genitourinary tract demonstrate no abnormalities. The muscles demonstrate normal overall bulk and internal signal. IMPRESSION: 1. No suspicious intraosseous lesion is seen in the spine, bony thorax or bony pelvis. No suspicious lesion is noted in bilateral femur. 2. Other incidental findings as above. 3. No gross muscle or soft tissue signal abnormality is seen. Dictated by: Demetrius Headley M.D. on 02/21/2022 at 11:01 Approved by: Demetrius Headley M.D. on 02/21/2022 at 11:15
== END ==
PROVIDERS: PCP Internal Medicine; Referring Provider Internal Medicine Medical Oncology; Visit Provider Internal Medicine Medical Oncology
DX: M85.852 Other specified disorders of bone density and structure, left thigh (principal); C90.00 Multiple myeloma not having achieved remission; Z78.0 Asymptomatic menopausal state; Z87.311 Personal history of (healed) other pathological fracture; Z79.83 Long term (current) use of bisphosphonates
CPT/HCPCS: 77080; 77084

== ENCOUNTER → 2022-03-29 11:55 | Outpatient (CLI) | payer MEDICARE, OTHER, SELFPAY ==
[2022-03-29 12:56] LABS: Add Manual Diff / Slide Review NO; Basophils Absolute Auto 0 /uL (0-100); Eosinophils Absolute Auto 200 /uL (0-450); Eosinophils Percent Auto 5.4 % (2-4); Hematocrit 35.1 % (36-46); Lymphocytes Absolute Auto 1100 /uL (1100-4500); Lymphocytes Percent Auto 26.5 % (25-40); Mean Corpuscular HGB Conc 34.1 % (30-36); Mean Corpuscular Hemoglobin 30.9 PG (26-34); Mean Corpuscular Volume 90.7 fL (80-100); Monocytes Absolute Auto 300 /uL (0-900); Monocytes Percent Auto 8.3 % (3-14); Neutrophils Absolute Auto 2400 /uL (1500-7000); Neutrophils Percent Auto 58.8 % (50-75); Platelet Count 247 X10^3/uL (150-400); Red Blood Cell Count 3.87 X10^6/uL (4.0-5.2); White Blood Cell Count 4.1 X10^3/uL (4.5-11.0)
[2022-03-29 13:16] LABS: Alanine Aminotransferase 25 IU/L (<35); Albumin 4.4 g/dL (3.5-5.0); Albumin Globulin Ratio 1.1 (1.0-2.8); Alkaline Phosphatase 82 U/L (38-126); Aspartate Aminotransferase 34 IU/L (14-36); BUN Creatinine Ratio 16.7 (6-22); Bilirubin Total 0.3 mg/dL (0.2-1.3); Bilirubin Unconjugated 0.3 mg/dL (0.0-1.1); Blood Urea Nitrogen 13 mg/dL (7-17); Calcium 9.9 mg/dL (8.4-10.2); Carbon Dioxide 30 mmol/L (22-32); Chloride 103 mmol/L (98-107); Estimated Glomerular Filt Rate > 60 mL/min (>60); Globulin 4.1 g/dL (1.7-4.1); Glucose 94 mg/dL (80-110); HEMOLYSIS < 15 (0-50); Phosphorous 3.4 mg/dL (2.8-4.1); Potassium 4.4 mmol/L (3.4-5.1); Sodium 139 mmol/L (137-145); Total Protein 8.5 g/dL (6.3-8.2)
[2022-03-30 05:11] LABS: Immunoglobulin A 17 mg/dL (64-422); Immunoglobulin G, Quantitative 2303 mg/dL (586-1602); Immunoglobulin M, Quantitative 9 mg/dL (26-217)
[2022-03-30 17:23] LABS: Free Kappa Lt Chains, Serum 122.6 mg/L (3.3-19.4); Free Lambda Lt Chains,Serum 8.5 mg/L (5.7-26.3)
== END ==
PROVIDERS: PCP Internal Medicine; Referring Provider Internal Medicine Medical Oncology; Visit Provider Internal Medicine Medical Oncology
DX: D47.2 Monoclonal gammopathy (principal)
CPT/HCPCS: 36415; 80069; 80076; 82784; 83883; 85025

== ENCOUNTER → 2022-08-02 14:55 | Outpatient (CLI) | payer MEDICARE, OTHER, SELFPAY ==
[2022-08-02 16:24] LABS: Alanine Aminotransferase 26 IU/L (<35); Albumin 4.2 g/dL (3.5-5.0); Alkaline Phosphatase 73 U/L (38-126); Aspartate Aminotransferase 32 IU/L (14-36); BUN Creatinine Ratio 26.8 (6-22); Bilirubin Total 0.2 mg/dL (0.2-1.3); Blood Urea Nitrogen 22 mg/dL (7-17); Calcium 9.6 mg/dL (8.4-10.2); Carbon Dioxide 32 mmol/L (22-32); Chloride 102 mmol/L (98-107); Cholesterol 143 mg/dL (140-199); Estimated Glomerular Filt Rate > 60 mL/min (>60); Globulin 4.1 g/dL (1.7-4.1); Glucose 98 mg/dL (80-110); HDL Cholesterol 59 mg/dL (40-60); HEMOLYSIS < 15 (0-50); LDL Cholesterol Calculated 63 mg/dL (<100); Sodium 137 mmol/L (137-145); Total Protein 8.3 g/dL (6.3-8.2); Triglycerides 103 mg/dL (35-150)
[2022-08-02 16:51] LABS: TSH w/ Reflex to FT4 2.52 uIU/mL (0.47-4.68)
[2022-08-02 17:10] LABS: Vitamin B12 611 pg/mL (239-931)
== END ==
PROVIDERS: PCP Internal Medicine; Referring Provider Internal Medicine; Visit Provider Internal Medicine
DX: E78.2 Mixed hyperlipidemia (principal); I70.0 Atherosclerosis of aorta; E53.8 Deficiency of other specified B group vitamins
CPT/HCPCS: 36415; 80053; 80061; 82607; 84443

== ENCOUNTER → 2022-09-15 11:33 | Outpatient (CLI) | payer MEDICARE, OTHER, SELFPAY ==
[2022-09-15 13:14] LABS: Add Manual Diff / Slide Review NO; Basophils Absolute Auto 100 /uL (0-100); Eosinophils Absolute Auto 200 /uL (0-450); Eosinophils Percent Auto 3.5 % (2-4); Hematocrit 35.4 % (36-46); Hemoglobin 12.2 g/dL (12.0-16.0); Lymphocytes Absolute Auto 1200 /uL (1100-4500); Lymphocytes Percent Auto 22.5 % (25-40); Mean Corpuscular HGB Conc 34.6 % (30-36); Mean Corpuscular Hemoglobin 31.4 PG (26-34); Mean Corpuscular Volume 90.9 fL (80-100); Monocytes Absolute Auto 500 /uL (0-900); Monocytes Percent Auto 9.1 % (3-14); Neutrophils Absolute Auto 3300 /uL (1500-7000); Neutrophils Percent Auto 62.9 % (50-75); Platelet Count 230 X10^3/uL (150-400); Red Blood Cell Count 3.89 X10^6/uL (4.0-5.2); White Blood Cell Count 5.2 X10^3/uL (4.5-11.0)
[2022-09-15 13:46] LABS: Albumin 4.3 g/dL (3.5-5.0); BUN Creatinine Ratio 21.4 (6-22); Blood Urea Nitrogen 15 mg/dL (7-17); Calcium 9.7 mg/dL (8.4-10.2); Carbon Dioxide 32 mmol/L (22-32); Chloride 101 mmol/L (98-107); Estimated Glomerular Filt Rate > 60 mL/min (>60); Glucose 71 mg/dL (80-110); HEMOLYSIS < 15 (0-50); Phosphorous 3.4 mg/dL (2.8-4.1); Potassium 4.3 mmol/L (3.4-5.1); Sodium 138 mmol/L (137-145)
[2022-09-18 22:22] LABS: Free Kappa Lt Chains, Serum 119.3 mg/L (3.3-19.4); Free Lambda Lt Chains,Serum 8.1 mg/L (5.7-26.3)
[2022-09-19 16:27] LABS: Albumin 3.8 g/dL (2.9-4.4); Alpha-1-Globulin 0.2 g/dL (0.0-0.4); Alpha-2-Globulin 0.7 g/dL (0.4-1.0); Gamma Globulin 1.9 g/dL (0.4-1.8); Globulin Total 3.6 g/dL (2.2-3.9); Protein, Total 7.4 g/dL (6.0-8.5)
== END ==
PROVIDERS: PCP Internal Medicine; Referring Provider Internal Medicine Medical Oncology; Visit Provider Internal Medicine Medical Oncology
DX: D47.2 Monoclonal gammopathy (principal)
CPT/HCPCS: 36415; 80069; 83883; 84155; 84165; 85025

== ENCOUNTER → 2022-12-03 14:43 | Outpatient (CLI) | payer MEDICARE, OTHER, SELFPAY ==
--- NOTE | 2022-12-03 14:50 | DI.RAD.S_ITS ---
PROCEDURE: XR SHOULDER RT MIN 2V INDICATIONS: rt shoulder pain, old trauma TECHNIQUE: 3 views of the shoulder were acquired. COMPARISON: None. FINDINGS: Bones: No fractures or dislocations. No suspicious bony lesions. Visualized ribs appear intact. Soft tissues: No suspicious soft tissue calcifications. IMPRESSION: 1. No acute intracranial abnormalities. If clinical symptoms persist or there is clinical suspicion for internal derangement, MRI is suggested for further evaluation. Dictated by: Jimenez Child M.D. on 12/03/2022 at 16:42 Approved by: Jimenez Child M.D. on 12/03/2022 at 16:44
[2022-12-03 15:29] LABS: Hematocrit 35.7 % (36-46); Hemoglobin 12.3 g/dL (12.0-16.0); Mean Corpuscular HGB Conc 34.5 % (30-36); Mean Corpuscular Hemoglobin 31.4 PG (26-34); Mean Corpuscular Volume 91.1 fL (80-100); Platelet Count 228 X10^3/uL (150-400); Red Blood Cell Count 3.92 X10^6/uL (4.0-5.2); Red Cell Distribution Width 12.7 % (11.6-14.8); White Blood Cell Count 6.6 X10^3/uL (4.5-11.0)
[2022-12-03 15:40] LABS: Alanine Aminotransferase 21 IU/L (<35); Albumin 4.4 g/dL (3.5-5.0); Albumin Globulin Ratio 1.2 (1.0-2.8); Alkaline Phosphatase 58 U/L (38-126); Amylase 65 U/L (30-110); Aspartate Aminotransferase 29 IU/L (14-36); BUN Creatinine Ratio 32.5 (6-22); Bilirubin Total 0.3 mg/dL (0.2-1.3); Blood Urea Nitrogen 27 mg/dL (7-17); Calcium 9.8 mg/dL (8.4-10.2); Carbon Dioxide 31 mmol/L (22-32); Chloride 100 mmol/L (98-107); Estimated Glomerular Filt Rate > 60 mL/min (>60); Globulin 3.8 g/dL (1.7-4.1); Glucose 98 mg/dL (80-110); HEMOLYSIS < 15 (0-50); Lipase 166 U/L (23-300); Potassium 4.2 mmol/L (3.4-5.1); Sodium 134 mmol/L (137-145); Total Protein 8.2 g/dL (6.3-8.2)
== END ==
PROVIDERS: PCP Internal Medicine; Referring Provider Internal Medicine; Visit Provider Internal Medicine
DX: R10.11 Right upper quadrant pain (principal); M75.81 Other shoulder lesions, right shoulder
CPT/HCPCS: 36415; 73030; 80053; 82150; 83690; 85027

== ENCOUNTER 2022-12-05 10:51 | Outpatient (RCR) | payer MEDICARE, OTHER, SELFPAY ==
--- NOTE | 2022-12-05 13:31 | PT.OIE ---
Current Diagnoses Pain in right shoulder (12/05/22) Bursitis of right shoulder (12/05/22) Past Medical History (Last Updated 08/02/22 @ 14:47 by Vahe Hubbard MD) Ankle pain (~2004) Atherosclerosis of aorta B12 deficiency Carpal tunnel syndrome (~2009) Chicken pox (~1965) Chronic back pain (~2005) Chronic GERD Chronic insomnia Diarrhea Diverticular disease (~2011) Diverticulitis Eczematous dermatitis Hemorrhoids (~2017) Hypercalcemia Medicare annual wellness visit, initial Meralgia paresthetica of both lower extremities Mixed hyperlipidemia Multiple myeloma Osteopenia Past Surgical History (Last Reviewed 05/13/22 @ 20:53 by Vahe Hubbard MD) Anesthesia H/O tubal ligation (~1974) History of appendectomy (~1968) History of carpal tunnel surgery History of parathyroidectomy (~2017) Hx of tonsillectomy (~1967) Previous section (~1969) Visit Care Team Role Provider Type Vahe Hubbard MD Attending Provider Physician Family Provider Primary Care Provider Referring Provider Specialty: Internal Medicine Address: [address] [place] [address] Email: [email or web address] Initial Evaluation PT-OP-A Visit Information Start: 12/04/22 16:43 Freq: Status: Active Protocol: Document 12/05/22 10:52 AB (Rec: 12/05/22 12:39 AB [id number]) Out-Patient Physical Therapy Visit Information Visit Information Visit Type Initial Evaluation Visit Start Time 11:00 Visit Stop Time 11:45 Total Visit Minutes 45 Visit Number 1 Evaluation Information Evaluation Date 12/05/22 Precautions Precautions Osteopenia PT-OP-B Current Condition Start: 12/04/22 16:43 Freq: Status: Active Protocol: Document 12/05/22 10:52 AB (Rec: 12/05/22 12:39 AB [id number]) Current Condition History of Current Condition Onset Date Chronic Current Complaints 4-5/10 with agg motions; 1/10 at rest History of Current Condition Pt reports that she fell on her right shoulder several year ago. Over the last couple of months she noticed pain over the top of it when reaching up or behind her back . She also began having pain when rowing, and cannot sleep on her right shoulder. Has taken ibuprofen to decrease pain, has used some ice; both helped some. Over the last week or two her pain has bene improving however she has been babying it. Prior Treatments and Tests Massage therapist a week ago - made her symptoms worse X-rays on 12/03/22 - no abnormal findings Treatment Goals Patient/Caregiver Goals To improve symptoms and return to her activities. Prior Functional Status Baseline Function- ADL's Independent Baseline Function- Mobility Independent Current Functional Impairments (Reported) Functional Limitations- ADL's Diffulty performing heavier ADLs/IADLs such as cleaning and vacuuming. Functional Limitations- Recreation/ Has stopped rowing. Hobbies PT-OP-C Subjective Start: 12/04/22 16:43 Freq: Status: Active Protocol: Document 12/05/22 10:52 AB (Rec: 12/05/22 12:39 AB [id number]) OP-PT Subjective Patient Comments Patient Comments See history of current condition Patient Reported Progress Improving Patient Questionnaires Quick Dash- Upper Extremity Quick Dash UE Score 59% Quick Dash UE Impairment 40 to 59% Impaired (Score 40- 59) PT-OP-H Neuro Start: 12/04/22 16:43 Freq: Status: Active Protocol: Document 12/05/22 10:52 AB (Rec: 12/05/22 12:39 AB [id number]) Sensation Evaluation Gross Sensation Gross Sensation WNL PT-OP-J Posture/Palpation/Skin Start: 12/04/22 16:43 Freq: Status: Active Protocol: Document 12/05/22 10:52 AB (Rec: 12/05/22 12:39 AB [id number]) Posture Evaluation Position Sitting Evaluation View Lateral T-Spine Posture Increased Kyphosis Palpation Assessment Location One Palpation Location Right shoulder Palpation Findings None/Normal Palpation Details Pt denies TTP PT-OP-K Range of Motion Start: 12/04/22 16:43 Freq: Status: Active Protocol: Document 12/05/22 10:52 AB (Rec: 12/05/22 12:39 AB [id number]) Shoulder Goniometric Range of Motion Shoulder Right Active Shoulder ROM WFL No Testing Position Sitting Flexion 106 Abduction 80 External Rotation at 0 degrees Abduction 49 Internal Rotation Behind Back (text) L1 Comments Functional ER: C6 Left Active Shoulder ROM WFL Yes Testing Position Sitting Flexion 165 Abduction 175 External Rotation at 0 degrees Abduction 60 Internal Rotation Behind Back (text) T3 Comments Functional ER: T3 PT-OP-L Special Tests Start: 12/04/22 16:43 Freq: Status: Active Protocol: Document 12/05/22 10:52 AB (Rec: 12/05/22 12:39 AB [id number]) Special Tests Shoulder Special Tests Lift-Off Rotator Cuff Test Results negative Empty Can Test Results positive Gong Luis Antonio Impingement Test Results positive PT-OP-M Strength Start: 12/04/22 16:43 Freq: Status: Active Protocol: Document 12/05/22 10:52 AB (Rec: 12/05/22 12:39 AB [id number]) Shoulder Strength Shoulder Manual Muscle Testing Right Flexion 4+ Good+ Extension 5 Normal Abduction (C5) 4- Good- Adduction 5 Normal External Rotation 4+ Good+ Internal Rotation 4+ Good+ Comments Pain with flexion and ABD Left Flexion 5 Normal Extension 5 Normal Abduction (C5) 5 Normal Adduction 5 Normal External Rotation 5 Normal Internal Rotation 5 Normal Elbow/Forearm Strength Elbow and Forearm Manual Muscle Testing Right Flexion (C6) 5 Normal Extension (C7) 5 Normal Left Flexion (C6) 5 Normal Extension (C7) 5 Normal PT-OP-T Assessment and Plan Start: 12/04/22 16:43 Freq: Status: Active Protocol: Document 12/05/22 10:52 AB (Rec: 12/05/22 12:39 AB [id number]) Physical Therapy Assessment Rehab Potential Rehabilitation Potential Excellent Evaluation Complexity Number of Personal Factors/Comorbidities 0 Number of Body Systems Impaired 1-2 Clinical Presentation at Evaluation Stable Impairments Impairments Functional Activities,Pain,ROM ,Strength Goals Seven Impairment Functional activities Impairment Pt has pain with ADLs, IADLs and functional activities Short Term Goal (STG) Pt to report minimal to no pain with ADLs and IADLs to show improving ability to perform functional activities. STG Duration 4 Alf Goal (LTG) Pt to report minimal to no pain with ADLs, IADLs, other functional activities or recreational activities to show return to her PLOF, LTG Duration 6 Six Impairment Pain Impairment QuickDASH score Short Term Goal (STG) Pt's QuickDASh score to improve by 10% or better to demonstrate improving symptoms and QOL. STG Duration 4 Alf Goal (LTG) Pt's QuickDASH score to improve to 19% impairement or less to show improved symptoms and QOL. LTG Duration 6 Five Impairment Weakness Short Term Goal (STG) Pt's gross UE MMT to improve to 4+/5 or better to show improving strength for ADLs, IADLs and other functional activities. STG Duration 4 Associate Vice President Goal (LTG) Pt's gross UE MMT to improve to 5/5 to show improved strength for ADLs, IADLs, other functional activities, and to return to recreational activites. LTG Duration 6 Four Impairment ROM deficits Short Term Goal (STG) Pt's functional ER to improve to T3 or better and functional IR to improve to T8 or better to show improving ROM in order to perform ADLs and IADLs. STG Duration 4 Associate Vice President Goal (LTG) Pt's functional ER to improve to T3 or better and functional IR to improve to T3 or better to show improved ROM in order to perform ADLs and IADLs. LTG Duration 6 Three Impairment ROM deficits Short Term Goal (STG) Pt's right shoulder ER AROM to improve to 55 degress or better to show improving ROM in order to perform ADLs and IADLs. STG Duration 4 Alf Goal (LTG) Pt's right shoulder ER AROM to improve to 60 degress or better to show improved ROM in order to perform ADLs and IADLs. LTG Duration 6 Two Impairment ROM deficits Short Term Goal (STG) Pt's right shoulder ABD AROM to improve to 120 degress or better to show improving ROM in order to perform ADLs and IADLs. STG Duration 4 Associate Vice President Goal (LTG) Pt's right shoulder flexion AROM to improve to 160 degress or better to show improved ROM in order to perform ADLs and IADLs. LTG Duration 6 One Impairment ROM deficits Short Term Goal (STG) Pt's right shoulder flexion AROM to improve to 120 degress or better to show improving ROM in order to perform ADLs and IADLs. STG Duration 4 Associate Vice President Goal (LTG) Pt's right shoulder flexion AROM to improve to 160 degress or better to show improved ROM in order to perform ADLs and IADLs. LTG Duration 6 Assessment Summary Assessment Ashley Martinez is a 72 year old female patient presenting to outpatient PT clinic with complaints of chronic right shoulder pain which began insidiosuly a few months ago. Today's PT examination revealed right UE AROM deficits, mild right UE weakness, and pain which was reproduced with shoulder special tests as noted above. Based on these findings, the patient would benefit from skilled PT to improve these deficits, as they are limiting her ability to perform her daily and recreational activites, in order to return to her PLOF. Physical Therapy Plan Frequency and Duration Frequency of Treatment 2x/Week Duration of treatment (weeks) 6 Plan of Care Start Date 12/05/22 Plan of Care End Date 01/16/23 Therapeutic Interventions Therapeutic Interventions Joint Mobilizations,Manual Therapy,Neuromuscular Re- education,Self-Care/Home Management,Soft Tissue Mobilization,Taping, Therapeutic Activities, Therapeutic Exercises Modalities Cold Pack/Ice Massage,Electric Stimulation Next Visit Focus/Plan Next Note Type Treatment Note Next Visit Plan Review HEP provided at eval, add low level RTC and periscapular therapeutic exercises and neuromuscular re -ed exercises. Use manual therapy and modalities as indicated.
--- NOTE | 2023-01-23 10:53 | PT.OPDS ---
Current Diagnoses Pain in right shoulder (12/05/22) Bursitis of right shoulder (12/05/22) Visit Care Team Role Provider Type Vahe Hubbard MD Attending Provider Physician Family Provider Primary Care Provider Referring Provider Specialty: Internal Medicine Address: [address] [place] [address], [facility] Email: [email or web address] Visit Number Visit Number 1 Discharge Summary PT-OP-B Current Condition Start: 12/04/22 16:43 Freq: Status: Active Protocol: Document 12/05/22 10:52 AB (Rec: 12/05/22 12:39 AB [id number]) Current Condition History of Current Condition Onset Date Chronic Current Complaints 4-5/10 with agg motions; 1/10 at rest History of Current Condition Pt reports that she fell on her right shoulder several year ago. Over the last couple of months she noticed pain over the top of it when reaching up or behind her back . She also began having pain when rowing, and cannot sleep on her right shoulder. Has taken ibuprofen to decrease pain, has used some ice; both helped some. Over the last week or two her pain has bene improving however she has been babying it. Prior Treatments and Tests Massage therapist a week ago - made her symptoms worse X-rays on 12/03/22 - no abnormal findings Treatment Goals Patient/Caregiver Goals To improve symptoms and return to her activities. Prior Functional Status Baseline Function- ADL's Independent Baseline Function- Mobility Independent Current Functional Impairments (Reported) Functional Limitations- ADL's Diffulty performing heavier ADLs/IADLs such as cleaning and vacuuming. Functional Limitations- Recreation/ Has stopped rowing. Hobbies PT-OP-C Subjective Start: 12/04/22 16:43 Freq: Status: Active Protocol: Document 12/05/22 10:52 AB (Rec: 12/05/22 12:39 AB [id number]) OP-PT Subjective Patient Comments Patient Comments See history of current condition Patient Reported Progress Improving Patient Questionnaires Quick Dash- Upper Extremity Quick Dash UE Score 59% Quick Dash UE Impairment 40 to 59% Impaired (Score 40- 59) PT-OP-H Neuro Start: 12/04/22 16:43 Freq: Status: Active Protocol: Document 12/05/22 10:52 AB (Rec: 12/05/22 12:39 AB [id number]) Sensation Evaluation Gross Sensation Gross Sensation WNL PT-OP-J Posture/Palpation/Skin Start: 12/04/22 16:43 Freq: Status: Active Protocol: Document 12/05/22 10:52 AB (Rec: 12/05/22 12:39 AB [id number]) Posture Evaluation Position Sitting Evaluation View Lateral T-Spine Posture Increased Kyphosis Palpation Assessment Location One Palpation Location Right shoulder Palpation Findings None/Normal Palpation Details Pt denies TTP PT-OP-K Range of Motion Start: 12/04/22 16:43 Freq: Status: Active Protocol: Document 12/05/22 10:52 AB (Rec: 12/05/22 12:39 AB [id number]) Shoulder Goniometric Range of Motion Shoulder Right Active Shoulder ROM WFL No Testing Position Sitting Flexion 106 Abduction 80 External Rotation at 0 degrees Abduction 49 Internal Rotation Behind Back (text) L1 Comments Functional ER: C6 Left Active Shoulder ROM WFL Yes Testing Position Sitting Flexion 165 Abduction 175 External Rotation at 0 degrees Abduction 60 Internal Rotation Behind Back (text) T3 Comments Functional ER: T3 PT-OP-L Special Tests Start: 12/04/22 16:43 Freq: Status: Active Protocol: Document 12/05/22 10:52 AB (Rec: 12/05/22 12:39 AB [id number]) Special Tests Shoulder Special Tests Lift-Off Rotator Cuff Test Results negative Empty Can Test Results positive Gong Luis Antonio Impingement Test Results positive PT-OP-M Strength Start: 12/04/22 16:43 Freq: Status: Active Protocol: Document 12/05/22 10:52 AB (Rec: 12/05/22 12:39 AB [id number]) Shoulder Strength Shoulder Manual Muscle Testing Right Flexion 4+ Good+ Extension 5 Normal Abduction (C5) 4- Good- Adduction 5 Normal External Rotation 4+ Good+ Internal Rotation 4+ Good+ Comments Pain with flexion and ABD Left Flexion 5 Normal Extension 5 Normal Abduction (C5) 5 Normal Adduction 5 Normal External Rotation 5 Normal Internal Rotation 5 Normal Elbow/Forearm Strength Elbow and Forearm Manual Muscle Testing Right Flexion (C6) 5 Normal Extension (C7) 5 Normal Left Flexion (C6) 5 Normal Extension (C7) 5 Normal PT-OP-T Assessment and Plan Start: 12/04/22 16:43 Freq: Status: Active Protocol: Document 01/23/23 10:51 AB (Rec: 01/23/23 10:53 AB [id number]) Physical Therapy Plan Discharge Physical Therapy Discharge Reasons Patient Request Discharge Comments The pt has undergone medical procedures that have prevented her from attending PT visits. PT called to check in on the pt, and pt states that her shoulder is doing well and would like to be discharged from PT. PT educated the pt on requesting a new referral from MD if her symptoms return .
== END 2023-01-25 08:55 | disposition home or self-care (01) ==
LOC: PHYS 10:51
PROVIDERS: Family Provider Internal Medicine; PCP Internal Medicine; Referring Provider Internal Medicine; Visit Provider Internal Medicine
DX: M75.51 Bursitis of right shoulder (principal); M25.511 Pain in right shoulder
CPT/HCPCS: 97110; 97161

== ENCOUNTER → 2022-12-05 12:32 | Outpatient (CLI) | payer MEDICARE, OTHER, SELFPAY ==
--- NOTE | 2022-12-05 12:33 | DI.US.S_ITS ---
PROCEDURE: US ABDOMEN LIMITED INDICATIONS: RUQ PAIN TECHNIQUE: Real-time focused scanning was performed of the abdomen, with image documentation. COMPARISON: [facility], CT, CT ABDOMEN PELVIS W CON, 10/28/2021, 20:45. [facility], CT, CT ABDOMEN PELVIS W CON, 03/08/2018, 21:07. [facility], [place], [place] HIDA WITH CCK, 09/12/2017, 8:37. [facility], [place], US ABDOMEN COMPLETE, 09/04/2017, 7:25. FINDINGS: The liver is normal in size and demonstrates no suspicious lesions. There is debris seen within the gallbladder. No shadowing stones are seen. The gallbladder wall is not thickened, measuring 3 mm or less. No specific pericholecystic fluid is seen. The sonographic Felix sign is negative. There is no biliary dilatation, the common bile duct measures 3 mm. No significant pancreatic abnormality is seen on these images. IMPRESSION: Debris/sludge is seen within the gallbladder, without stones seen. No additional sonographic signs of cholecystitis are seen. Dictated by: Evan Wadsworth M.D. on 12/05/2022 at 19:34 Approved by: Evan Wadsworth M.D. on 12/05/2022 at 19:36
== END ==
PROVIDERS: Family Provider Internal Medicine; PCP Internal Medicine; Referring Provider Internal Medicine; Visit Provider Internal Medicine
DX: R10.11 Right upper quadrant pain (principal); K82.8 Other specified diseases of gallbladder
CPT/HCPCS: 76705

== ENCOUNTER 2023-01-01 12:51 | Day surgery (SDC) | payer MEDICARE, OTHER, SELFPAY ==
[2022-12-20 12:51] VITALS: BMI 21.9
--- NOTE | 2023-01-01 | PATH_ITS ---
[facility] Accession Number: [id number] No. of containers..01 Tissue . 01 Material submitted: . gallbladder - GALLBLADDER . 01 Diagnosis: Gallbladder, Cholecystectomy: Mild chronic cholecystitis. Negative for atypia and malignancy. MRV 01/07/2023 1248 Local . 01 Electronically signed: . Adelfo Herndon MD, Pathologist NPI- [id number] . 01 Gross description: . The specimen is received in formalin labeled with the patient's name, , and gallbladder consists of an intact gallbladder measuring 6.6 x 2.7 x 2.5 cm. The serosa is unremarkable. The cystic duct margin is inked blue and no pericystic lymph node is identified. The lumen is filled with dark green viscous bile with no calculi identified in the lumen or the container. The mucosa is dark green and velvety with no discoloration, polyps, or lesions identified. The faye average 0.2 cm thick. Plumber Supervisor sections to include the cystic duct margin and full thickness sections are submitted in cassette A1. ([id number]) /MRV 01/03/2023 1910 Local . 01 Pathologist provided ICD-10: K81.1 . 01 CPT . 810369 Specimen Comment: A courtesy copy of this report has been sent to [phone] Performed at: 01 [facility] [address] [place] [address], [place], [place] [id number] MD Sergio Abrams MD Phone: [phone]
[2023-01-01 13:23] VITALS: BP 97/57; PULSE 67; RESP 17; TEMP 36.5; O2SAT 99; BMI 21.9
--- NOTE | 2023-01-01 14:33 | PM.PREOP ---
Pre-operative Note COVID-19 COVID-19 status: Not tested Interval Note History & Physical reviewed/Exam performed by Physician: Yes Changes to H&P: No ASA Class (for procedural sedation): II
[2023-01-01] MEDS: CLINDAMYCIN 900 MG/50 ML PIGGYBACK 50 MG IV (15:06)
--- NOTE | 2023-01-01 15:32 | SUR.OPER ---
Supine on padded OR bed, head on pillow, safety belt at thigh, bilateral arms secured on padded arm board <90 degrees abduction. Legs uncrossed. Padded footboard in place. Tape over blanket to secure lower legs. Gel pad under bilateral heels.
[2023-01-01] MEDS: BUPIVACAINE 0.5% (PF) 30 ML, EPINEPHrine 0.15 MG INJ (15:40)
--- NOTE | 2023-01-01 15:52 | PM.OP.1 ---
Operative Date/Time/Diagnoses Date of procedure: 01/01/23 Time of procedure: 15:52 Pre-op diagnosis: Biliary colic Post-op diagnosis: same Procedure & Clinicians Procedure: Laparoscopic cholecystectomy Same procedure as scheduled: Yes Surgeon: Gabriel Hawkins Learning And Development Specialist: Beni Mcneil Anesthesia Type: General Operative Notes Procedure in detail: The patient was given preoperative antibiotic. The patient was brought to the operating room, placed on the table in the supine position. General endotracheal anesthesia was induced. The abdomen was prepped and draped. A time-out was performed. We made a 1 cm infraumbilical incision. We dissected down to the base of the umbilical stalk using cautery. We grasped the umbilical stalk with a Arlette clamp to elevate the abdominal wall. We scored the fascia in the midline with cautery 1 cm. We pierced the peritoneum with a Peon clamp. The Kerwin port was placed and the abdomen was insufflated to 15 mmHg. A 5 mm 30 degree laparoscopic was inserted. There was no evidence of any injury from the entry. Next, we placed 5 mm ports in the subxiphoid position and right upper quadrant at the midclavicular line and anterior axillary line. Patient was then positioned in reverse Trendelenburg and the table was tilted to the left. The gallbladder was grasped at the dome and retracted cephalad. A few adhesions were taken down cautery. We then dissected the cystic structures with a combination of hook cautery and blunt dissection. We obtained a critical view. We placed clips on the cystic duct and artery and divided the cystic duct and artery sharply between the clips. The gallbladder was then dissected off the liver and placed in a specimen retrieval bag. We irrigated the right upper quadrant and all the aspirate returned clear. We then removed the 5 mm ports under direct vision we removed the Kerwin port. We then injected some local into the fascia and closed the fascia with 2 interrupted 0 Vicryl sutures. The skin incisions were closed with 4-0 Monocryl and Steri-Strips were applied. Band-Aids were applied over the Steri-Strips. EBL: 10 mL Specimen: Gallbladder Beni DOMINGUEZ provided assistance with exposure, retraction and closure of incisions. Post-operative Condition: stable Disposition: PACU
[2023-01-01] MEDS: LACTATED RINGERS 1,000 ML 42 ML IV (15:58)
[2023-01-01 16:10] VITALS: BP 128/58; PULSE 90; RESP 11; TEMP 36.4; O2SAT 96
[2023-01-01] MEDS: SCOPOLAMINE 1 PATCH TOP (16:12)
[2023-01-01] MEDS: ONDANSETRON 4 MG/2 ML INJ IV (16:14)
[2023-01-01 16:15] VITALS: BP 117/62; PULSE 104; RESP 11; TEMP 36.4; O2SAT 97
[2023-01-01] MEDS: OXYCODONE IR 5 MG TABLET PO ×2 (16:16→16:54)
[2023-01-01 16:21] VITALS: BP 129/61; PULSE 103; RESP 12; TEMP 36.4; O2SAT 96
[2023-01-01] MEDS: BENZOCAINE/MENTHOL 1 LOZ PKT 1 EACH PO ×2 (16:24→16:54)
[2023-01-01 16:26] VITALS: BP 134/66; PULSE 91; RESP 15; TEMP 36.4; O2SAT 98
[2023-01-01 16:31] VITALS: BP 130/71; PULSE 90; RESP 15; TEMP 36.4; O2SAT 98
== END 2023-01-01 17:30 | disposition home or self-care (01) ==
PROVIDERS: Family Provider Internal Medicine; PCP Internal Medicine; Referring Provider Surgery; Visit Provider Surgery
PROC: 0FT44ZZ Resection of Gallbladder, Percutaneous Endoscopic Approach (ICD-10-PCS; CPT 47562; principal; 2023-01-01 14:15)
DX: K81.1 Chronic cholecystitis (principal)
CPT/HCPCS: 47562; J0171; J1100; J2405; J2704; J3010

== ENCOUNTER → 2023-02-27 07:55 | Outpatient (CLI) | payer MEDICARE, OTHER, SELFPAY ==
--- NOTE | 2023-02-27 07:58 | DI.MG.S_ITS ---
BILATERAL DIGITAL SCREENING MAMMOGRAM 3D/2D WITH CAD: 02/27/2023 CLINICAL: Routine screening. Family history of breast cancer. Comparison is made to exams dated: 02/17/2022 mammogram, 01/25/2021 mammogram, 11/02/2019 mammogram, and 05/15/2016 mammogram - [facility]. Both breasts are heterogeneously dense, which may obscure small masses (category c / 51-75% glandular tissue). Current study was also evaluated with a Computer Aided Detection (CAD) system. There is a stable benign mass in the right breast. There also are stable benign calcifications in both breasts. No significant masses, calcifications, or other findings are seen in either breast. There has been no significant interval change. IMPRESSION: BENIGN There is no mammographic evidence of malignancy. A 1 year screening mammogram is recommended. Based on the Tyrer Cuzick model (a risk assessment model) the patient's lifetime risk is 7.9% and her 10 year risk is 5.9%. According to the ACR, ACS, and NCCN guidelines, an annual breast MRI exam along with mammogram is recommended if the patient's lifetime risk is 20% or greater. This exam was interpreted at Station ID: [id number]. NOTE: For mammograms, a report in lay terms will be sent to the patient. Approximately 15% of breast malignancies will not be visualized mammographically. In the management of a palpable breast mass, a negative mammogram must not discourage biopsy of a clinically suspicious lesion. Electronically Signed By: Sydni wilkes/ashwin:02/27/2023 15:15:09 letter sent: Normal Exam ACR BI-RADS Category 2: Benign Finding(s) 3342F
[2023-02-27 08:48] LABS: BUN Creatinine Ratio 17.6 (6-22); Blood Urea Nitrogen 13 mg/dL (7-17); Estimated Glomerular Filt Rate > 60 mL/min (>60)
== END ==
PROVIDERS: Family Provider Internal Medicine; PCP Internal Medicine; Referring Provider Surgery; Visit Provider Surgery
DX: Z12.31 Encounter for screening mammogram for malignant neoplasm of breast (principal); Z80.3 Family history of malignant neoplasm of breast; R10.9 Unspecified abdominal pain
CPT/HCPCS: 36415; 77063; 77067; 82565; 84520

== ENCOUNTER → 2023-02-27 11:01 | Outpatient (CLI) | payer MEDICARE, OTHER, SELFPAY ==
--- NOTE | 2023-02-27 11:04 | DI.CT.S_ITS ---
PROCEDURE: CT ABDOMEN PELVIS W CON INDICATIONS: Right flank pain TECHNIQUE: After the administration of oral and intravenous contrast, axial sections were acquired from the lung bases to the pubic symphysis. Coronal and sagittal reformats were performed. For radiation dose reduction, the following was used: automated exposure control, adjustment of mA and/or kV according to patient size. COMPARISON:[facility], CT, CT ABDOMEN PELVIS W CON, 10/28/2021, 20:45. [facility], CT, CT ABDOMEN PELVIS W CON, 03/08/2018, 21:07. FINDINGS: Image quality: Excellent. Lung bases: Lung bases are clear. Small hiatal hernia. Heart: No significant findings. ABDOMEN: Liver: There is diffuse hypoattenuation of the liver parenchyma relative to the spleen compatible with hepatic steatosis. Gallbladder: Gallbladder is not definitively visualized and likely decompressed. Recommend correlation with surgical history to exclude interval cholecystectomy. No acute inflammatory changes identified in the gallbladder fossa. Biliary ducts: Unremarkable. Pancreas: Homogeneous enhancement without focal lesions or pancreatic ductal dilatation. No peripancreatic inflammation or organized fluid collections. Spleen: No splenomegaly Adrenal Glands: Unremarkable. Kidneys and Ureters: Kidneys are symmetric in size and enhancement, and there is no obstructive uropathy. No perinephric inflammatory changes. Ureters are normal in course and caliber. Stomach and Bowel: Stomach, small bowel loops, and colon are unremarkable. Colonic diverticulosis without acute diverticulitis. Peritoneum: No abnormal intraperitoneal fluid. No free air. Ventral Wall: There is a fat-containing umbilical hernia without acute inflammation. Abdominal Nodes: No retroperitoneal or mesenteric adenopathy by size criteria. Vessels: Scattered atherosclerotic calcifications of the abdominal aorta and iliac vessels without aneurysmal dilatation. The inferior vena cava appears patent. PELVIS: Pelvic Organs: Unremarkable. Bladder: There is mild circumferential thickening of the urinary bladder with suggestion of mild perivesicular inflammation. Pelvic Nodes: No enlarged lymph nodes. Miscellaneous: No inguinal hernias are seen. Bones: No acute vertebral body compression fractures. Multilevel spondylitic changes throughout the imaged spine. No suspicious osseous lesions. IMPRESSION: 1. Mild urinary bladder wall thickening and perivesicular stranding possibly related to cystitis. Otherwise, no evidence for obstructive uropathy. 2. No acute inflammatory changes identified in the right lower quadrant. Colonic diverticulosis without acute diverticulitis. No evidence for bowel obstruction. 3. Small hiatal hernia. 4. Hepatic steatosis. Dictated by: Yariel Ward M.D. on 02/27/2023 at 16:01 Approved by: Yariel Ward M.D. on 02/27/2023 at 16:14
== END ==
PROVIDERS: Family Provider Internal Medicine; PCP Internal Medicine; Referring Provider Surgery; Visit Provider Surgery
DX: K57.90 Diverticulosis of intestine, part unspecified, without perforation or abscess without bleeding (principal); K44.9 Diaphragmatic hernia without obstruction or gangrene; K76.0 Fatty (change of) liver, not elsewhere classified; R10.9 Unspecified abdominal pain
CPT/HCPCS: 74177; Q9967

== ENCOUNTER → 2023-03-01 10:15 | Outpatient (CLI) | payer MEDICARE, OTHER, SELFPAY ==
[2023-03-01 12:07] LABS: Appearance Urine UA CLEAR; Bilirubin Urine UA NEGATIVE (NEGATIVE); Color Urine UA YELLOW; Glucose Urine UA NEGATIVE (Negative); Ketones Urine UA NEGATIVE (NEGATIVE); Leukocyte Esterase Urine UA NEGATIVE (NEGATIVE); Nitrite Urine UA NEGATIVE (Negative); Occult Blood Urine UA NEGATIVE (Negative); Protein Urine UA NEGATIVE (Negative); Specific Gravity Urine UA <=1.005 (1.000-1.035); Urobilinogen Urine UA 0.2 E.U./dL (0.2)
[2023-03-01 12:14] LABS: Bacteria Urine None Seen; Culture Indicated Urine Cult Not Indicated; RBC Urine None Seen (0-5/HPF); Squamous Epithelial Cell Urine None Seen (0-5/HPF); WBC Urine None Seen (0-5/HPF)
== END ==
PROVIDERS: Family Provider Internal Medicine; PCP Internal Medicine; Referring Provider Surgery; Visit Provider Surgery
DX: R10.9 Unspecified abdominal pain (principal)
CPT/HCPCS: 81001

== ENCOUNTER → 2023-04-11 08:56 | Outpatient (CLI) | payer MEDICARE, OTHER, SELFPAY ==
[2023-04-11 10:01] LABS: Add Manual Diff / Slide Review NO; Basophils Absolute Auto 100 /uL (0-100); Basophils Percent Auto 1.2 % (0-2); Eosinophils Absolute Auto 200 /uL (0-450); Eosinophils Percent Auto 4.5 % (2-4); Hematocrit 34.6 % (36-46); Hemoglobin 11.9 g/dL (12.0-16.0); Lymphocytes Absolute Auto 1100 /uL (1100-4500); Mean Corpuscular HGB Conc 34.5 % (30-36); Mean Corpuscular Hemoglobin 31.5 PG (26-34); Mean Corpuscular Volume 91.3 fL (80-100); Monocytes Absolute Auto 400 /uL (0-900); Neutrophils Absolute Auto 2900 /uL (1500-7000); Neutrophils Percent Auto 62.3 % (50-75); Platelet Count 220 X10^3/uL (150-400); Red Blood Cell Count 3.78 X10^6/uL (4.0-5.2); White Blood Cell Count 4.6 X10^3/uL (4.5-11.0)
[2023-04-11 10:13] LABS: Alanine Aminotransferase 24 IU/L (<35); Albumin 4.3 g/dL (3.5-5.0); Albumin Globulin Ratio 1.1 (1.0-2.8); Alkaline Phosphatase 73 U/L (38-126); Aspartate Aminotransferase 34 IU/L (14-36); BUN Creatinine Ratio 23.2 (6-22); Bilirubin Total 0.5 mg/dL (0.2-1.3); Bilirubin Unconjugated 0.3 mg/dL (0.0-1.1); Blood Urea Nitrogen 16 mg/dL (7-17); Calcium 10.2 mg/dL (8.4-10.2); Carbon Dioxide 30 mmol/L (22-32); Chloride 103 mmol/L (98-107); Estimated Glomerular Filt Rate > 60 mL/min (>60); Globulin 3.9 g/dL (1.7-4.1); Glucose 87 mg/dL (80-110); HEMOLYSIS < 15 (0-50); Phosphorous 3.5 mg/dL (2.8-4.1); Potassium 4.2 mmol/L (3.4-5.1); Sodium 137 mmol/L (137-145); Total Protein 8.2 g/dL (6.3-8.2)
[2023-04-12 22:44] LABS: Free Kappa Lt Chains, Serum 109.5 mg/L (3.3-19.4); Free Lambda Lt Chains,Serum 7.1 mg/L (5.7-26.3)
[2023-04-13 00:07] LABS: IGA 14 mg/dL (64-422); IGG 1898 mg/dL (586-1602); IGM 6 mg/dL (26-217)
[2023-04-15 13:25] LABS: Albumin 3.8 g/dL (2.9-4.4); Alpha-1-Globulin 0.3 g/dL (0.0-0.4); Alpha-2-Globulin 0.7 g/dL (0.4-1.0); Globulin Total 3.8 g/dL (2.2-3.9); Protein, Total 7.6 g/dL (6.0-8.5)
== END ==
PROVIDERS: Family Provider Internal Medicine; PCP Internal Medicine; Referring Provider Internal Medicine Medical Oncology; Visit Provider Internal Medicine Medical Oncology
DX: D47.2 Monoclonal gammopathy (principal)
CPT/HCPCS: 36415; 80069; 80076; 82784; 83883; 84155; 84165; 85025

== ENCOUNTER → 2023-05-26 14:25 | Outpatient (CLI) | payer MEDICARE, OTHER, SELFPAY ==
--- NOTE | 2023-05-26 14:26 | DI.MRI.S_ITS ---
PROCEDURE: MR LUMBAR SPINE WO CON INDICATIONS: low back pain/sciatica TECHNIQUE: Noncontrast sagittal T1 spin echo and T2 fast echo, sagittal STIR, and T2 fast spin echo through the lumbar spine. In cases with scoliosis, additional coronal T2 fast spin echo may be performed. COMPARISON: None. FINDINGS: Image quality: Excellent. Alignment and Curvature: There is normal bony alignment. Bone Marrow: Marrow is of normal overall signal. No acute vertebral body compression fractures. Spinal Cord: Conus medullaris terminates at the L1 level. Visualized cord demonstrates normal signal and size. Paraspinous Soft Tissues: No paravertebral masses. T12-L1: Normal appearance. L1-L2: Disc space narrowing and posterior disc bulge with hypertrophic facet joints. Mild central stenosis. Moderate right and no left foraminal stenosis. L2-L3: And circumferential disc bulge with hypertrophic facet joints. Mild bilateral foraminal stenosis. No central stenosis. L3-L4: Disc space narrowing and circumferential disc bulge with hypertrophic facet joints with ligamentum flavum laxity to result in moderate central stenosis. Moderate bilateral foraminal stenosis. L4-L5: Disc space narrowing with disc bulge and facet hypertrophy. Mild central and moderate bilateral foraminal stenosis L5-S1: Disc space narrowing with disc bulge and hypertrophic facet joints. No central stenosis. Moderate bilateral foraminal stenosis. IMPRESSION: Multilevel degenerative disc disease and arthropathy results in varying degrees of central and foraminal stenosis including moderate central and foraminal stenosis L3-4 Approved by: Orlando Renae M.D. on 05/27/2023 at 15:23
== END ==
LOC: MRI 14:25
PROVIDERS: Family Provider Internal Medicine; PCP Internal Medicine; Referring Provider Internal Medicine; Visit Provider Internal Medicine
DX: M47.816 Spondylosis without myelopathy or radiculopathy, lumbar region; M47.817 Spondylosis without myelopathy or radiculopathy, lumbosacral region; M48.061 Spinal stenosis, lumbar region without neurogenic claudication; M48.07 Spinal stenosis, lumbosacral region; M51.36 Other intervertebral disc degeneration, lumbar region; M51.37 Other intervertebral disc degeneration, lumbosacral region; M54.9 Dorsalgia, unspecified; G57.13 Meralgia paresthetica, bilateral lower limbs; G89.29 Other chronic pain; R10.9 Unspecified abdominal pain
CPT/HCPCS: 72148

== ENCOUNTER → 2023-06-29 14:52 | Outpatient (CLI) | payer MEDICARE, OTHER, SELFPAY ==
--- NOTE | 2023-06-29 14:54 | DI.RAD.S_ITS ---
PROCEDURE: XR LUMBAR SPINE MIN 4V INDICATIONS: BACK PAIN TECHNIQUE: 5 views of the lumbar spine were acquired, including bilateral oblique views. COMPARISON: [facility], , -SPINE 2-3 VIEWS, 08/12/2009, 10:33. FINDINGS: Bones: 5 nonrib-bearing vertebrae are present. There is normal bony alignment. No vertebral body compression fractures. No suspicious bony lesions. Disc space narrowing hypertrophic facet joints noted in the lower lumbar spine Soft tissues: Overlying bowel gas pattern is normal. No suspicious soft tissue calcifications. Oblique images: No pars defects. IMPRESSION: Degenerative disc disease and arthropathy in the lower lumbar spine without fracture Approved by: Orlando Renae M.D. on 06/29/2023 at 15:10
== END ==
LOC: RAD 14:53
PROVIDERS: Family Provider Internal Medicine; PCP Internal Medicine; Referring Provider Physical Medicine & Rehabilitation; Visit Provider Physical Medicine & Rehabilitation
DX: M51.36 Other intervertebral disc degeneration, lumbar region (principal); M47.816 Spondylosis without myelopathy or radiculopathy, lumbar region; M54.9 Dorsalgia, unspecified
CPT/HCPCS: 72110

== ENCOUNTER 2023-07-30 12:47 | Day surgery (SDC) | payer MEDICARE, OTHER, SELFPAY ==
--- NOTE | 2023-07-30 | PATH_ITS ---
[facility] Accession Number: [id number] No. of containers..01 Tissue . 01 Material submitted: . stomach - ANTRUM BIOPSIES . 01 Diagnosis: STOMACH, ANTRUM, BIOPSIES: Antral mucosa with mild chronic gastritis and intestinal metaplasia. Negative for Helicobacter by immunohistochemistry. Negative for dysplasia and malignancy. MRV 08/05/2023 1219 Local . 01 Electronically signed: . Imani Rueda MD, Pathologist NPI- [id number] . 01 Gross description: . ANTRUM BIOPSIES: Received in formalin are 4 fragment(s) of kruger, soft tissue measuring 0.1 x 0.1 x 0.1 cm to 0.4 x 0.4 x 0.2 cm submitted entirely in 1 cassette(s) /ARNOLD 08/01/2023 0009 Local . 01 Microscopic: . An immunohistochemical stain was performed to evaluate for Helicobacter organisms and is negative. The control stain showed appropriate reactivity. . * This test was developed and its performance characteristics determined by [facility]. It has not been cleared or approved by the U.S. Food and Drug Administration. The FDA has determined that such clearance or approval is not necessary. This test is used for clinical purposes. It should not be regarded as investigational or for research. . 01 Pathologist provided ICD-10: R10.9 . 01 CPT . 759924, N60501 Specimen Comment: A courtesy copy of this report has been sent to [phone] Performed at: 01 [facility] [address] [place] [address], [place], [place] [id number] MD Sergio Abrams MD Phone: [phone]
[2023-07-30 13:07] VITALS: BP 107/67; PULSE 71; RESP 16; TEMP 36.6; O2SAT 100
[2023-07-30] MEDS: LACTATED RINGERS 1,000 ML 150 ML IV (13:13)
--- NOTE | 2023-07-30 13:50 | P.HP_ITS ---
History of Present Illness History of Present Illness Date Patient Seen: 07/30/23 Time Patient Seen: 13:50 [place] [facility] [place]: Ashley is a 73-year-old woman who has a right upper quadrant pain. She had her gallbladder out last year. The pain has existed since before her gallbladder surgery but she originally thought it was from her gallstones. She had a recent CT scan that was normal. FORMERLY [facility] Medical History Facet arthropathy, lumbar Lumbar radiculopathy Eczematous dermatitis Chronic insomnia Atherosclerosis of aorta Meralgia paresthetica of both lower extremities Diarrhea Mixed hyperlipidemia B12 deficiency Chronic back pain (~2005) Carpal tunnel syndrome (~2009) Ankle pain (~2004) Chicken pox (~1965) Diverticular disease (~2011) Chronic GERD Multiple myeloma Diverticulitis Hemorrhoids (~2017) Hypercalcemia Osteopenia Surgical History Hx laparoscopic cholecystectomy History of carpal tunnel surgery Anesthesia H/O tubal ligation (~1974) History of parathyroidectomy (~2017) Previous section (~1969) Hx of tonsillectomy (~1967) History of appendectomy (~1968) Family History Mother Cancer Hypertension Father Heart disease Brother COPD (chronic obstructive pulmonary disease) Sister C. difficile colitis Social History marital status: details: one son, retired estate planning paralegal household members: spouse housing: house Smoking Status: Former smoker alcohol intake: never Meds Home Medications and Allergies Home Medications Medication Instructions Recorded Confirmed Type calcium 600 mg capsule 600 mg PO DAILY 04/26/20 07/30/23 History cholecalciferol (vitamin D3) 50 50 mcg PO DAILY 04/26/20 07/30/23 History mcg (2,000 unit) capsule (Vitamin D3) latanoprost 0.005 % eye drops 1 drp EYE-BOTH DAILY 02/14/22 07/30/23 History gabapentin 300 mg capsule 1,200 mg (4 x 300 mg) PO BEDTIME 03/04/23 07/30/23 Rx #360 caps lifitegrast 5 % eye drops in a 1 drp EYE-BOTH BID 03/04/23 07/30/23 History dropperette (Xiidra) rosuvastatin 10 mg tablet 10 mg PO DAILY #90 tabs 03/25/23 07/30/23 Rx celecoxib 200 mg capsule (Celebrex) 200 mg PO DAILY #30 caps 07/01/23 07/30/23 Rx Allergies Allergy/AdvReac Type Severity Reaction Status Date / Time Penicillins Allergy Severe Anaphylaxis Verified 07/30/23 13:04 levofloxacin AdvReac Severe TENDON PAIN Verified 07/30/23 13:04 codeine AdvReac Mild Nausea Verified 07/30/23 13:04 Exam Vital Signs (past 8 hours): - 07/30/23 13:07 Temperature 97.8 F Pulse Rate 71 Respiratory Rate 16 Blood Pressure 107/67 Pulse Oximetry 100 Oxygen Delivery Method Room Air Oxygen Delivery Method Room Air Const General: healthy appearing Assessment & Plan Assessment and plan (1) Right flank pain: Status: Acute Plan We discussed the risks and benefits of esophagogastroduodenoscopy and she would like to proceed.
--- NOTE | 2023-07-30 14:14 | PM.OP.EGD ---
Operative Date/Time/Diagnoses Date of procedure: 07/30/23 Time of procedure: 14:14 Pre-op diagnosis: Abdominal pain Post-op diagnosis: same Procedure & Clinicians Study performed: Esophagogastroduodenoscopy Same procedure as scheduled: Yes Surgeon: Gabriel Hawkins Procedure Notes Procedure in detail: Surgeon: Gabriel Hawkins MD Anesthesia: Imani Larson timeout was performed. A bite blocked was placed. The patient was positioned in the left lateral decubitus position. Anesthesia was administered. The endoscope was inserted through the bite block and passed through the esophagus and stomach and into the duodenum. The duodenal mucosa appeared normal. No abnormalities were seen. The scope was withdrawn into the duodenal bulb and no abnormalities were seen. The scope was withdrawn into the stomach. There was mild antritis and random biopsies were taken of the antrum with cold forceps. The rest of the stomach was normal. The scope was retroflexed and no hiatal hernia was seen. The scope was withdrawn into the esophagus and no abnormalities were seen. The remainder of the esophagus was normal. The scope was withdrawn. The patient was awakened and brought to recovery. Sedation time: 6 minutes Findings: Mild antritis Post-procedure Disposition: PACU
[2023-07-30 14:21] VITALS: BP 106/64; PULSE 90; RESP 18; TEMP 36.6; O2SAT 95
[2023-07-30 14:22] VITALS: BP 104/62; PULSE 84; RESP 12; O2SAT 95
[2023-07-30 14:27] VITALS: BP 99/45; PULSE 85; RESP 14; O2SAT 96
[2023-07-30 14:36] VITALS: BP 104/61; PULSE 76; RESP 16; TEMP 36.7; O2SAT 98
== END 2023-07-30 14:51 | disposition home or self-care (01) ==
PROVIDERS: Family Provider Internal Medicine; PCP Internal Medicine; Referring Provider Surgery; Visit Provider Surgery
PROC: 0DJ08ZZ Inspection of Upper Intestinal Tract, Via Natural or Artificial Opening Endoscopic (ICD-10-PCS; CPT 43235; principal; 2023-07-30 13:30)
DX: K29.50 Unspecified chronic gastritis without bleeding (principal); K31.A11 Gastric intestinal metaplasia without dysplasia, involving the antrum
CPT/HCPCS: 43239

== ENCOUNTER → 2023-10-14 09:05 | Outpatient (CLI) | payer MEDICARE, OTHER, SELFPAY ==
[2023-10-14 10:35] LABS: Add Manual Diff / Slide Review NO; Basophils Absolute Auto 0 /uL (0-100); Basophils Percent Auto 1.1 % (0-2); Eosinophils Absolute Auto 100 /uL (0-450); Eosinophils Percent Auto 3.1 % (2-4); Hematocrit 34.8 % (36-46); Hemoglobin 12.1 g/dL (12.0-16.0); Lymphocytes Absolute Auto 1100 /uL (1100-4500); Lymphocytes Percent Auto 27.7 % (25-40); Mean Corpuscular HGB Conc 34.9 % (30-36); Mean Corpuscular Volume 91.7 fL (80-100); Monocytes Absolute Auto 500 /uL (0-900); Monocytes Percent Auto 11.9 % (3-14); Neutrophils Absolute Auto 2200 /uL (1500-7000); Neutrophils Percent Auto 56.2 % (50-75); Platelet Count 206 X10^3/uL (150-400); Red Cell Distribution Width 12.9 % (11.6-14.8); White Blood Cell Count 3.9 X10^3/uL (4.5-11.0)
[2023-10-14 10:39] LABS: Alanine Aminotransferase 19 IU/L (<35); Albumin 4.3 g/dL (3.5-5.0); Albumin Globulin Ratio 1.2 (1.0-2.8); Alkaline Phosphatase 61 U/L (38-126); Aspartate Aminotransferase 31 IU/L (14-36); Bilirubin Total 0.5 mg/dL (0.2-1.3); Blood Urea Nitrogen 17 mg/dL (7-17); Calcium 10.1 mg/dL (8.4-10.2); Carbon Dioxide 32 mmol/L (22-32); Chloride 103 mmol/L (98-107); Estimated Glomerular Filt Rate > 60 mL/min (>60); Globulin 3.7 g/dL (1.7-4.1); Glucose 75 mg/dL (80-110); HEMOLYSIS < 15 (0-50); Sodium 137 mmol/L (137-145)
[2023-10-15 18:07] LABS: Free Kappa Lt Chains, Serum 100.9 mg/L (3.3-19.4); Free Lambda Lt Chains,Serum 8.1 mg/L (5.7-26.3)
[2023-10-16 12:44] LABS: Albumin 3.7 g/dL (2.9-4.4); Alpha-1-Globulin 0.2 g/dL (0.0-0.4); Alpha-2-Globulin 0.6 g/dL (0.4-1.0); Gamma Globulin 1.9 g/dL (0.4-1.8); Globulin Total 3.5 g/dL (2.2-3.9); Protein, Total 7.2 g/dL (6.0-8.5)
== END ==
PROVIDERS: Family Provider Internal Medicine; PCP Internal Medicine; Referring Provider Physician Assistant; Visit Provider Physician Assistant
DX: D47.2 Monoclonal gammopathy (principal)
CPT/HCPCS: 36415; 80053; 83883; 84155; 84165; 85025

== ENCOUNTER 2023-11-18 06:49 | Emergency (ER) | payer MEDICARE, OTHER, SELFPAY ==
[2023-11-18 07:19] VITALS: BP 139/60; PULSE 84; O2SAT 95
[2023-11-18 07:22] VITALS: BP 139/68; PULSE 82; RESP 18; TEMP 36.7; O2SAT 96; BMI 23.0
--- NOTE | 2023-11-18 07:23 | ED.URI ---
HPI - URI/Sore Throat General Chief Complaint: Upper Respiratory Symptoms Stated Complaint: Covid + possible strep throat Time Seen by Provider: 11/18/23 07:13 History of Present Illness HPI Narrative: Patient is a 73-year-old female without significant past medical history presenting today with sore throat. She had a home positive test for COVID 3 days ago started Paxlovid last night. She continues to have significant sore throat worried that she might have strep as well. She denies any fever cough or shortness of breath. She was taking DayQuil NyQuil but on Tylenol. She is taking Celebrex regularly for arthritis. Related Data Home Medications Medication Instructions Recorded Confirmed calcium 600 mg capsule 600 mg PO DAILY 04/26/20 08/29/23 cholecalciferol (vitamin D3) 50 50 mcg PO DAILY 04/26/20 08/29/23 mcg (2,000 unit) capsule (Vitamin D3) latanoprost 0.005 % eye drops 1 drp EYE-BOTH DAILY 02/14/22 08/29/23 lifitegrast 5 % eye drops in a 1 drp EYE-BOTH BID 03/04/23 08/29/23 dropperette (Xiidra) Previous Rx's Medication Instructions Recorded rosuvastatin 10 mg tablet 10 mg PO DAILY #90 tabs 03/25/23 trazodone 50 mg tablet See Rx Instructions PO BEDTIME PRN 08/29/23 sleep #60 tabs celecoxib 200 mg capsule (Celebrex) 200 mg PO DAILY #30 caps 09/27/23 gabapentin 300 mg capsule 1,200 mg (4 x 300 mg) PO BEDTIME 10/15/23 #360 caps Allergies Allergy/AdvReac Type Severity Reaction Status Date / Time Penicillins Allergy Severe Anaphylaxis Verified 11/18/23 07:25 levofloxacin AdvReac Severe TENDON PAIN Verified 11/18/23 07:25 codeine AdvReac Mild Nausea Verified 11/18/23 07:25 Patient History Medical History Facet arthropathy, lumbar Lumbar radiculopathy Eczematous dermatitis Chronic insomnia Atherosclerosis of aorta Meralgia paresthetica of both lower extremities Diarrhea Mixed hyperlipidemia B12 deficiency Chronic back pain (~2005) Carpal tunnel syndrome (~2009) Ankle pain (~2004) Chicken pox (~1965) Diverticular disease (~2011) Chronic GERD Multiple myeloma Diverticulitis Hemorrhoids (~2018) Hypercalcemia Osteopenia Surgical History Hx laparoscopic cholecystectomy History of carpal tunnel surgery Anesthesia H/O tubal ligation (~1974) History of parathyroidectomy (~2018) Previous section (~1969) Hx of tonsillectomy (~1967) History of appendectomy (~1968) Family History Mother Cancer Hypertension Father Heart disease Brother COPD (chronic obstructive pulmonary disease) Sister C. difficile colitis Social History marital status: details: one son, retired perch machine inspector household members: spouse housing: house Smoking Status: Former smoker alcohol intake: never Smoking Status: Former smoker alcohol intake frequency: a few times a week Substance Use Type: does not use Exam Initial Vital Signs Initial Vital Signs: Vital Signs Pulse Rate 84 11/18/23 07:19 Blood Pressure 139/60 11/18/23 07:19 Pulse Oximetry 95 11/18/23 07:19 GENERAL: Alert pleasant 73-year-old female and in no acute distress. HEENT: Head atraumatic,EOMI, pupils reactive, face symmetric, PHARYNX: Slightly erythematous no enlarged tonsils no uvula swelling or deviation airway patent CARDIOVASCULAR: Regular rate and rhythm without murmurs, rubs or gallops. RESPIRATORY: Breath sounds equal bilaterally, no wheezes rales or rhonchi. ABDOMEN: Soft, nontender. Normoactive bowel sounds all 4 quadrants. No guarding or rebound. EXTREMITIES: Normal range of motion, no clubbing or edema. Neurovascularly intact NEUROLOGICAL: Alert and oriented x4.Normal gait and speech SKIN: Warm, dry, no laceration, no petechiae, no rashes or lesions. Course Orders Ordered: ED Orders 11/18/23 07:30 Strep Grp A by PCR Rapid Stat Throat Culture Stat Vital Signs Vital signs: Vital Signs - 8 hr 11/18/23 07:19 11/18/23 07:19 11/18/23 07:22 Temperature 98.1 F Pulse Rate 84 82 Respiratory Rate 18 Blood Pressure 139/60 139/68 Pulse Oximetry 95 96 Oxygen Delivery Method Room Air 11/18/23 07:30 Temperature Pulse Rate 90 Respiratory Rate Blood Pressure Pulse Oximetry 96 Oxygen Delivery Method MDM - URI/Sore Throat Lab Data Labs: Lab Results 11/18/23 Range/Units 07:30 Group A Strep (PCR) Negative (Negative) MDM Narrative Medical decision making narrative: Patient is 73-year-old female positive for COVID started Paxlovid continues to have sore throat. Rapid strep is negative. I suspect that throat pain is likely from COVID rather than subsequent strep infection. Talked with her about conservative measures and supportive care. Risks and benefits of Paxlovid. At this time no need for any further workup or evaluation Discharge Plan Departure Patient Disposition: Home Clinical Impression: COVID-19 Instructions: COVID-19 Activity Restrictions/Additional Instructions: *You have been diagnosed with COVID-19 *What to do: At this time stay hydrated rest. *Continue to take medications as directed Tylenol 1000 mg every 6 hours Motrin 600 mg every 6 hours (recommend not combining with Celebrex) *Follow up with your primary care provider in 2-3 days or call [phone] *Return to ER if you should have increased confusion increased shortness of breath or any new, worsening or concerning symptoms Prescriptions: No Action rosuvastatin 10 mg tablet 10 mg PO DAILY Qty: 90 3RF celecoxib [Celebrex] 200 mg capsule 200 mg PO DAILY Qty: 30 2RF gabapentin 300 mg capsule 1,200 mg PO BEDTIME Qty: 360 1RF latanoprost 0.005 % drops 1 drp EYE-BOTH DAILY Xiidra 5 % dropperette 1 drp EYE-BOTH BID Patient Comments: [NO ORIGINAL SIG] trazodone 50 mg tablet See Rx Instructions PO BEDTIME PRN (Reason: sleep) Qty: 60 5RF Rx Instructions: 1-2 tablets nightly as needed for sleep calcium 600 mg Capsule 600 mg PO DAILY cholecalciferol (vitamin D3) [Vitamin D3] 50 mcg (2,000 unit) Capsule 50 mcg PO DAILY Referrals: Vahe Hubbard MD [Primary Care Provider] - Stand Alone Forms: Patient Portal/API
[2023-11-18 07:30] VITALS: PULSE 90; O2SAT 96
[2023-11-18 07:50] LABS: Strep Grp A by PCR Rapid Negative (Negative)
== END 2023-11-18 08:18 | disposition home or self-care (01) ==
PROVIDERS: Emergency Provider Emergency Medicine; Family Provider Internal Medicine; PCP Internal Medicine
DX: U07.1 COVID-19 (principal)
CPT/HCPCS: 87070; 87651; 99281; 99283

== ENCOUNTER → 2024-01-02 15:51 | Outpatient (CLI) | payer MEDICARE, OTHER, SELFPAY ==
[2024-01-02 17:11] LABS: Appearance Urine UA SL CLOUDY; Bilirubin Urine UA NEGATIVE (NEGATIVE); Color Urine UA YELLOW; Glucose Urine UA NEGATIVE (Negative); Ketones Urine UA NEGATIVE (NEGATIVE); Leukocyte Esterase Urine UA NEGATIVE (NEGATIVE); Nitrite Urine UA NEGATIVE (Negative); Occult Blood Urine UA NEGATIVE (Negative); Protein Urine UA NEGATIVE (Negative); Specific Gravity Urine UA 1.015 (1.000-1.035); Urobilinogen Urine UA 0.2 E.U./dL (0.2)
[2024-01-02 17:18] LABS: Amorphous Sediment Urine 2+; Bacteria Urine Occasional (0-1); Culture Indicated Urine Cult Not Indicated; RBC Urine 0-1/HPF (0-5/HPF); Squamous Epithelial Cell Urine 0-1 /HPF (0-5/HPF); Urine Volume 10mL (spun); WBC Urine 0-1/HPF (0-5/HPF)
== END ==
LOC: LAB 15:52
PROVIDERS: Family Provider Internal Medicine; PCP Internal Medicine; Referring Provider Internal Medicine; Visit Provider Internal Medicine
DX: R35.0 Frequency of micturition (principal)
CPT/HCPCS: 81001

== ENCOUNTER → 2024-03-17 09:31 | Outpatient (CLI) | payer MEDICARE, OTHER, SELFPAY ==
--- NOTE | 2024-03-17 09:36 | DI.MG.S_ITS ---
BILATERAL DIGITAL SCREENING MAMMOGRAM 3D/2D WITH CAD: 03/17/2024 CLINICAL: Routine screening. Family history of breast cancer. Comparison is made to exams dated: 02/27/2023 mammogram, 02/17/2022 mammogram, 01/25/2021 mammogram, 11/02/2019 mammogram, and 10/04/2018 mammogram - [facility]. The breasts are heterogeneously dense, which may obscure small masses (category c / 51-75% glandular tissue). Current study was also evaluated with a Computer Aided Detection (CAD) system. No significant masses, calcifications, or other findings are seen in either breast. There has been no significant interval change. IMPRESSION: NEGATIVE There is no mammographic evidence of malignancy. A 1 year screening mammogram is recommended. Based on the Tyrer Cuzick model (a risk assessment model) the patient's lifetime risk is 7.4% and her 10 year risk is 6.0%. According to the ACR, ACS, and NCCN guidelines, an annual breast MRI exam along with mammogram is recommended if the patient's lifetime risk is 20% or greater. This exam was interpreted at Station ID: [id number]. NOTE: For mammograms, a report in lay terms will be sent to the patient. Approximately 15% of breast malignancies will not be visualized mammographically. In the management of a palpable breast mass, a negative mammogram must not discourage biopsy of a clinically suspicious lesion. Electronically Signed By: Christa Henry M.D., Ph.D. akua/[email or web address]:03/17/2024 11:52:39 letter sent: Normal Exam ACR BI-RADS Category 1: Negative
--- NOTE | 2024-03-17 09:37 | DI.RAD.S_ITS ---
PROCEDURE: XR DEXA AXIAL SKELETON INDICATIONS: ROUTINE COMPARISON: [facility], CR, XR DEXA AXIAL SKELETON, 02/20/2022, 11:37. [facility], CR, XR DEXA AXIAL SKELETON, 05/01/2018, 15:20. FINDINGS: Lumbar Spine: Bone mineral density 0.882 g/cm2, T score -1.2, there is significant interval increase in bone mineral density. Left Hip: Bone mineral density 0.744 g/cm2, T score -1.6. Left Femoral Neck: Bone mineral density 0.598 g/cm2, T score -2.3. Right Hip: Bone mineral density 0.761 g/cm2, T score -1.5. Right Femoral Neck: Bone mineral density 0.641 g/cm2, T score -1.9. Fracture Risk Calculation (when applicable): 10-year fracture risk of a major osteoporotic fracture 21 percent and of a hip fracture 5.4 percent. (T score greater or equal to -1.0 to: NORMAL) (T score from -1.1 to -2.4: OSTEOPENIA) (T score less than or equal to -2.5: OSTEOPOROSIS) IMPRESSION: Osteopenia. There is significant interval increase in bone mineral density at the lumbar spine. Follow-up guidelines as follows: Osteoporosis: Consider a repeat DEXA and Vertebral Fracture Assessment (VFA) exam in 2 years or sooner if medically necessary, to reassess this patient's status. Osteopenia: Consider a repeat DEXA in 2-3 years to reassess this patient's status, or if there is a new clinical indication. Normal: Consider a repeat DEXA in 5 years or sooner, or if there is a new clinical indication. All treatment decisions require clinical judgment and consideration of individual patient factors, including patient preferences, comorbidities, previous drug use, risk factors not captured in the FRAX model (e.g., frailty, falls, vitamin D deficiency, increased bone turnover, interval significant decline in bone density ) and possible under- or over-estimation of fracture risk by FRAX. In addition, the NOF Guide recommends that FDA-approved medical therapies be considered in postmenopausal women and men age >= 50 years with a: * Hip or vertebral (clinical or morphometric) fracture * T-score of <=-2.5 at the spine or hip * Ten-year fracture probability by FRAX of >= 3% for hip fracture or >=20% for major osteoporotic fracture. People with diagnosed cases of osteoporosis or at high risk for fracture should have regular bone mineral density tests. For patients eligible for Medicare, routine testing is allowed once every 2 years. The testing frequency can be increased to one year for patients who have rapidly progressing disease, those who are receiving or discontinuing medical therapy to restore bone mass, or have additional risk factors. Dictated by: Jose Antonio Holliday M.D. on 03/18/2024 at 0:19 Approved by: Jose Antonio Holliday M.D. on 03/18/2024 at 0:21
[2024-03-17 12:03] LABS: Add Manual Diff / Slide Review NO; Basophils Absolute Auto 0 /uL (0-100); Basophils Percent Auto 0.7 % (0-2); Eosinophils Absolute Auto 100 /uL (0-450); Eosinophils Percent Auto 1.4 % (2-4); Hematocrit 38.1 % (36-46); Hemoglobin 12.9 g/dL (12.0-16.0); Lymphocytes Absolute Auto 1100 /uL (1100-4500); Lymphocytes Percent Auto 21.3 % (25-40); Mean Corpuscular HGB Conc 33.9 % (30-36); Mean Corpuscular Hemoglobin 31.4 PG (26-34); Mean Corpuscular Volume 92.6 fL (80-100); Monocytes Absolute Auto 400 /uL (0-900); Monocytes Percent Auto 8.9 % (3-14); Neutrophils Absolute Auto 3400 /uL (1500-7000); Neutrophils Percent Auto 67.7 % (50-75); Platelet Count 247 X10^3/uL (150-400); Red Blood Cell Count 4.12 X10^6/uL (4.0-5.2); Red Cell Distribution Width 12.9 % (11.6-14.8)
[2024-03-17 12:30] LABS: Alanine Aminotransferase 23 IU/L (<35); Albumin 4.5 g/dL (3.5-5.0); Albumin Globulin Ratio 1.2 (1.0-2.8); Alkaline Phosphatase 61 U/L (38-126); Aspartate Aminotransferase 36 IU/L (14-36); Bilirubin Total 0.4 mg/dL (0.2-1.3); Blood Urea Nitrogen 24 mg/dL (7-17); Carbon Dioxide 29 mmol/L (22-32); Chloride 104 mmol/L (98-107); Estimated Glomerular Filt Rate > 60 mL/min (>60); Globulin 3.8 g/dL (1.7-4.1); Glucose 87 mg/dL (80-110); HEMOLYSIS < 15 (0-50); Potassium 4.3 mmol/L (3.4-5.1); Sodium 136 mmol/L (137-145); Total Protein 8.3 g/dL (6.3-8.2)
[2024-03-18 22:08] LABS: Free Kappa Lt Chains, Serum 112.2 mg/L (3.3-19.4); Free Lambda Lt Chains,Serum 11.1 mg/L (5.7-26.3)
[2024-03-19 12:11] LABS: Albumin 3.9 g/dL (2.9-4.4); Alpha-1-Globulin 0.2 g/dL (0.0-0.4); Alpha-2-Globulin 0.7 g/dL (0.4-1.0); Globulin Total 3.8 g/dL (2.2-3.9); Protein, Total 7.7 g/dL (6.0-8.5)
== END ==
PROVIDERS: Family Provider Internal Medicine; PCP Internal Medicine; Referring Provider Student in an Organized Health Care Education/Training Program; Visit Provider Student in an Organized Health Care Education/Training Program
DX: Z12.31 Encounter for screening mammogram for malignant neoplasm of breast (principal); Z80.3 Family history of malignant neoplasm of breast; D47.2 Monoclonal gammopathy; R92.333 Mammographic heterogeneous density, bilateral breasts; M85.89 Other specified disorders of bone density and structure, multiple sites
CPT/HCPCS: 36415; 77063; 77067; 77080; 80053; 83883; 84155; 84165; 85025

== ENCOUNTER → 2024-05-06 09:42 | Outpatient (CLI) | payer MEDICARE, OTHER, SELFPAY ==
[2024-05-06 11:17] LABS: Aspartate Aminotransferase 35 IU/L (14-36); BUN Creatinine Ratio 21.4 (6-22); Blood Urea Nitrogen 18 mg/dL (7-17); Calcium 10.4 mg/dL (8.4-10.2); Carbon Dioxide 33 mmol/L (22-32); Chloride 101 mmol/L (98-107); Cholesterol 139 mg/dL (140-199); Estimated Glomerular Filt Rate > 60 mL/min (>60); Glucose 81 mg/dL (80-110); HDL Cholesterol 64 mg/dL (40-60); HEMOLYSIS < 15 (0-50); LDL Cholesterol Calculated 59 mg/dL (<100); Potassium 4.1 mmol/L (3.4-5.1); Sodium 137 mmol/L (137-145); Triglycerides 80 mg/dL (35-150)
[2024-05-06 12:07] LABS: Vitamin B12 710 pg/mL (239-931)
== END ==
PROVIDERS: Family Provider Internal Medicine; PCP Internal Medicine; Referring Provider Internal Medicine; Visit Provider Internal Medicine
DX: E53.8 Deficiency of other specified B group vitamins (principal); C90.00 Multiple myeloma not having achieved remission; E78.2 Mixed hyperlipidemia
CPT/HCPCS: 36415; 80048; 80061; 82607; 84450

== ENCOUNTER → 2024-06-18 12:26 | Outpatient (CLI) | payer MEDICARE, OTHER, SELFPAY ==
--- NOTE | 2024-06-18 12:31 | DI.RAD.S_ITS ---
PROCEDURE: XR FOOT RT MIN 3V INDICATIONS: Foot pain TECHNIQUE: 3 views of the foot were acquired. COMPARISON: [facility], , XR FOOT RT MIN 3V, 01/06/2020, 10:23. FINDINGS: Bones: No acute fractures or dislocations. No suspicious bony lesions. Scattered degenerative changes of the interphalangeal joints of the toes. Mild to moderate degenerative changes of the 1st metatarsophalangeal joint. Mild degenerative spurring of the dorsal talonavicular joint. Posterior and plantar calcaneal enthesophytes. Soft tissues: No tibiotalar joint effusion. Achilles tendon appears normal. IMPRESSION: [id number] forefoot osteoarthrosis. No acute osseous abnormality. Approved by: Ketan Serrano M.D. on 06/19/2024 at 16:26
== END ==
PROVIDERS: Family Provider Internal Medicine; PCP Internal Medicine; Referring Provider Family Medicine; Visit Provider Family Medicine
DX: M19.071 Primary osteoarthritis, right ankle and foot (principal); M79.671 Pain in right foot
CPT/HCPCS: 73630

== ENCOUNTER → 2024-09-14 10:10 | Outpatient (CLI) | payer MEDICARE, OTHER, SELFPAY ==
[2024-09-14 11:03] LABS: Influenza A - CEPHEID Flu A NEGATIVE (NEGATIVE); Influenza B - CEPHEID Flu B NEGATIVE (NEGATIVE); Respiratory Syncytial Virus Negative (Negative)
[2024-09-14 11:11] LABS: COVID-19 CEPHEID 4-PLEX PCR Negative (Negative)
== END ==
PROVIDERS: Family Provider Internal Medicine; PCP Internal Medicine; Visit Provider Physician Assistant
DX: R05.1 Acute cough (principal)
CPT/HCPCS: 0241U; 87070

== ENCOUNTER → 2024-09-16 12:55 | Outpatient (CLI) | payer MEDICARE, OTHER, SELFPAY ==
--- NOTE | 2024-09-16 12:57 | DI.RAD.S_ITS ---
PROCEDURE: XR CHEST 2V INDICATIONS: acute cough TECHNIQUE: 2 views of the chest were acquired. COMPARISON: [place], [place], [place] PET CT FUSION WHOLE BODY, 05/20/2024, 8:09. FINDINGS AND IMPRESSION: No dense airspace disease or pleural effusions. Degenerative osseous changes. Normal heart size. Dictated by: Olivier Coulter M.D. on 09/16/2024 at 15:59 Approved by: Olivier Coulter M.D. on 09/16/2024 at 16:00
== END ==
PROVIDERS: Family Provider Internal Medicine; PCP Internal Medicine; Referring Provider Physician Assistant; Visit Provider Physician Assistant
DX: J06.9 Acute upper respiratory infection, unspecified (principal)
CPT/HCPCS: 71046

== ENCOUNTER → 2024-10-26 11:18 | Outpatient (CLI) | payer MEDICARE, OTHER, SELFPAY ==
[2024-10-26 12:14] LABS: Add Manual Diff / Slide Review NO; Basophils Absolute Auto 0 /uL (0-100); Basophils Percent Auto 0.7 % (0-2); Eosinophils Absolute Auto 200 /uL (0-450); Eosinophils Percent Auto 2.8 % (2-4); Hematocrit 34.2 % (36-46); Hemoglobin 11.7 g/dL (12.0-16.0); Lymphocytes Absolute Auto 1300 /uL (1100-4500); Lymphocytes Percent Auto 18.4 % (25-40); Mean Corpuscular HGB Conc 34.3 % (30-36); Mean Corpuscular Hemoglobin 31.8 PG (26-34); Mean Corpuscular Volume 92.7 fL (80-100); Monocytes Absolute Auto 500 /uL (0-900); Monocytes Percent Auto 7.2 % (3-14); Neutrophils Absolute Auto 5000 /uL (1500-7000); Neutrophils Percent Auto 70.9 % (50-75); Platelet Count 244 X10^3/uL (150-400); Red Blood Cell Count 3.68 X10^6/uL (4.0-5.2); Red Cell Distribution Width 13.7 % (11.6-14.8); White Blood Cell Count 7.1 X10^3/uL (4.5-11.0)
[2024-10-26 12:40] LABS: Alanine Aminotransferase 17 IU/L (<35); Albumin 4.3 g/dL (3.5-5.0); Albumin Globulin Ratio 1.2 (1.0-2.8); Alkaline Phosphatase 82 U/L (38-126); Aspartate Aminotransferase 29 IU/L (14-36); BUN Creatinine Ratio 23.3 (6-22); Bilirubin Total 0.3 mg/dL (0.2-1.3); Blood Urea Nitrogen 17 mg/dL (7-17); Calcium 9.8 mg/dL (8.4-10.2); Carbon Dioxide 27 mmol/L (22-32); Chloride 105 mmol/L (98-107); Estimated Glomerular Filt Rate > 60 mL/min (>60); Globulin 3.6 g/dL (1.7-4.1); Glucose 92 mg/dL (70-99); HEMOLYSIS < 15 (0-50); Potassium 4.4 mmol/L (3.4-5.1); Sodium 138 mmol/L (137-145); Total Protein 7.9 g/dL (6.3-8.2)
[2024-10-27 17:09] LABS: Free Kappa Lt Chains, Serum 106.6 mg/L (3.3-19.4)
[2024-10-28 16:39] LABS: Albumin 3.6 g/dL (2.9-4.4); Alpha 1 Globulin 0.3 g/dL (0.0-0.4); Alpha 2 Globulin 0.7 g/dL (0.4-1.0); Beta 1 Globulin 0.8 g/dL (0.7-1.3); Immunoglobulin A 16 mg/dL (64-422); Immunoglobulin G 2197 mg/dL (586-1602); Immunoglobulin M 7 mg/dL (26-217); Protein, Total 7.3 g/dL (6.0-8.5)
== END ==
PROVIDERS: Family Provider Internal Medicine; PCP Internal Medicine; Visit Provider Student in an Organized Health Care Education/Training Program
DX: D47.2 Monoclonal gammopathy (principal)
CPT/HCPCS: 36415; 80053; 83883; 84155; 84165; 85025

== ENCOUNTER → 2025-04-10 09:08 | Outpatient (CLI) | payer MEDICARE, OTHER, SELFPAY ==
--- NOTE | 2025-04-10 09:09 | DI.MG.S_ITS ---
MM screening mammo BI: 04/10/2025. BI-RADS: 1 CLINICAL: 74-year old female for bilateral screening mammogram. Tyrer-Cuzick lifetime risk of 5.4%. Current reported family history of breast cancer: mother and paternal aunt. PRIOR EXAMS 03/17/2024, 02/27/2023, 02/17/2022, 01/25/2021. MAMMOGRAPHY TECHNIQUE: 2D and 3D (tomosynthesis) digital mammographic views obtained, with additional images as needed for full coverage. Current study was also evaluated with a Computer Aided Detection (CAD) system. DENSITY C. The breasts are heterogeneously dense, which may obscure small masses. MAMMOGRAPHY FINDINGS Bilateral: No suspicious mass, asymmetry, microcalcification, or other abnormality seen. IMPRESSION: * No evidence of malignancy. RECOMMENDATIONS Bilateral * Annual screening mammography. OVERALL ASSESSMENT CATEGORY BI-RADS-1: Negative. The [employer] recommends annual screening mammography beginning at age 40 for women with average risk of breast cancer. ELECTRONICALLY SIGNED: Luz Marina Mullen M.D. on 04/12/2025 at 10:59:03 AM PT Interpreting Station ID: [id number]
--- NOTE | 2025-04-10 09:09 | DI.MRI.S_ITS ---
PROCEDURE: MR LUMBAR SPINE WO CON INDICATIONS: low back pain/sciatica TECHNIQUE: Noncontrast sagittal T1 spin echo and T2 fast echo, sagittal STIR, and T2 fast spin echo through the lumbar spine. In cases with scoliosis, additional coronal T2 fast spin echo may be performed. COMPARISON: [facility], MR, MR LUMBAR SPINE WO CON, 05/26/2023, 14:36. FINDINGS: Image quality: Excellent. Alignment and Curvature: There is trace retrolisthesis of L1 on L2, L2 on L3, L4 on L5 and trace anterolisthesis of L3 on L4. Bone Marrow: Marrow is of normal overall signal. Mild reactive endplate changes L3-4, L4-5. No acute vertebral body compression fractures. Spinal Cord: Conus medullaris terminates at the L1 level. Visualized cord demonstrates normal signal and size. 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 Paraspinous Soft Tissues: No paravertebral masses. Discs: Multilevel overall moderate disc desiccation. T12-L1: No disc bulge, spinal stenosis or foraminal narrowing. L1-L2: Mild disc bulge with mild spinal stenosis. Moderate right foraminal narrowing with facet and ligamentum flavum hypertrophy. No interval change. L2-L3: Mild disc bulge without spinal stenosis. Mild bilateral foraminal narrowing with facet and ligamentum flavum hypertrophy. No interval change. L3-L4: Mild disc bulge with moderate spinal stenosis. Moderate bilateral foraminal narrowing with facet and ligamentum flavum hypertrophy. L4-L5: Mild disc bulge with mild spinal stenosis. Moderate bilateral foraminal narrowing with facet and ligamentum flavum hypertrophy. No interval change. L5-S1: Mild disc bulge without spinal stenosis. There is moderate to severe narrowing through the subarticular recesses bilaterally as well as moderate bilateral foraminal narrowing. Appearance is stable. Facet and ligamentum flavum hypertrophy are present. IMPRESSION: Multilevel degenerative disc bulges, spinal stenosis and foraminal narrowing overall stable compared to prior exam. Dictated by: Nadine Cristobal M.D. on 04/12/2025 at 14:14 Approved by: Nadine Cristobal M.D. on 04/12/2025 at 14:21
== END ==
PROVIDERS: Family Provider Internal Medicine; PCP Internal Medicine; Referring Provider Internal Medicine; Visit Provider Internal Medicine
DX: Z12.31 Encounter for screening mammogram for malignant neoplasm of breast (principal); R92.333 Mammographic heterogeneous density, bilateral breasts; Z80.3 Family history of malignant neoplasm of breast; M51.360 Other intervertebral disc degeneration, lumbar region with discogenic back pain only; M51.370 Other intervertebral disc degeneration, lumbosacral region with discogenic back pain only; M48.061 Spinal stenosis, lumbar region without neurogenic claudication; M48.07 Spinal stenosis, lumbosacral region; R10.A1 Flank pain, right side; G57.13 Meralgia paresthetica, bilateral lower limbs; G89.29 Other chronic pain
CPT/HCPCS: 72148; 77063; 77067